=== PATIENT | male | born 1960 | race Caucasian/White ===

== ENCOUNTER 2020-06-30 09:44 | Outpatient (CLI) | payer OTHER, SELFPAY ==
--- NOTE | ~2020-06-30 | CT_ITS ---
EXAMINATION: CT abdomen pelvis w con DATE: 06/30/2020 10:41 INDICATION: Prostate cancer TECHNIQUE: Computed tomography (CT) of the abdomen and pelvis was performed with 100 cc Omnipaque 350 intravenous contrast. Automated exposure control and iterative reconstruction technique were employe d. Exam dose: 883.76 mGy-cm total exam DLP. COMPARISON: None. FINDINGS: The lung bases are clear of infiltrate or consolidation. Normal heart size. No pericardial or pleural effusion. There are numerous scattered hepatic cysts, measuring up to 12 mm dimension. No bile duct dilatation. The gallbladder appears normal. No pancreatic mass lesion or calcification or ductal dilatation. Nor mal splenic size. Normal morphology of the adrenal glands. Several small left renal cysts. No urinary tract calculus or hydroureteronephrosis. Normal caliber of the abdominal aorta. No intraperitoneal or retroperitoneal or pelvic mass lesion or adenopathy or ascites. Diffuse moderate bladder wall thickening. There is atherosclerotic calcification of the abdominal aorta and at the origins of the celiac and andrade perior mesenteric and renal arteries. Iliac and femoral artery calcifications. No abdominal aortic an eurysm. No intraperitoneal or retroperitoneal or pelvic mass lesion or adenopathy or ascites is evide nt. Normal appendix. There are diverticula of left and right colon; no CT evidence of diverticulitis. No bowel obstruction, bowel wall thickening, pneumatosis or intraperitoneal free air is detected. No suspicious osteolytic or osteoblastic lesions are noted. Probable bone island of left femoral neck . IMPRESSION: Hepatic cysts, several small left renal cysts Diffuse moderate bladder wall thickening Diverticulosis of the colon Reviewed, dictated and finalized at Location [facility]. Reviewed, dictated and finalized at location B. LATION MANAGER
--- NOTE | ~2020-06-30 | NM_ITS ---
NM bone scan whole body DATE: 06/30/2020 13:37 INDICATION: Prostate cancer TECHNIQUE: Routine anterior and posterior delayed whole body images of the skeleton after intravenous injection of 22.9 mCi 99m technetium HDP COMPARISON: June 30, 2020 CT abdomen pelvis FINDINGS: Focal areas of increased uptake at the acromioclavicular joints, sternal manubrial-body mook ction, first carpometacarpal joints and right knee joint are consistent with degenerative changes. No scintigraphic evidence of skeletal metastatic disease. Bilateral renal activity is noted. IMPRESSION: No evidence of skeletal metastatic disease Reviewed, dictated and finalized at [facility]. Reviewed, dictated and finalized at location B. OR PAYROLL SPECIALIST
[2020-06-30 10:44] LABS: Estimated Glomerular Filt Rate > 60
== END 2020-06-30 09:45 | disposition home or self-care (01) ==
LOC: ANHIMG 09:49
PROVIDERS: PCP Internal Medicine; Visit Provider Urology
DX: C61 Malignant neoplasm of prostate (principal); K76.89 Other specified diseases of liver; N28.1 Cyst of kidney, acquired; N32.9 Bladder disorder, unspecified; K57.90 Diverticulosis of intestine, part unspecified, without perforation or abscess without bleeding
CPT/HCPCS: 74177; 78306; A9561; Q9967

== ENCOUNTER 2020-08-05 09:25 | Outpatient (CLI) | payer OTHER, SELFPAY ==
--- NOTE | 2020-08-05 11:04 | ECG_ITS ---
Measurements Intervals Farrell Rate: 73 P: 42 TN: 162 QRS: 84 QRSD: 103 T: 60 QT: 376 QTc: 417 Interpretive Statements SINUS RHYTHM BORDERLINE R WAVE PROGRESSION, ANTERIOR LEADS BORDERLINE ECG Electronically Signed On 08-05-2020 11:33:06 CDT by Cal Nuñez D.O.
[2020-08-05 11:30] LABS: Basophils Absolute Auto 0.1 K/mm3 (0.0-0.1); Eosinophils Absolute Auto 0.2 K/mm3 (0-0.3); Eosinophils Percent Auto 2.5 % (0-4.4); Hematocrit 46.3 % (42.0-52.0); Hemoglobin 15.4 g/dL (14.0-18.0); Immature Granulocyte Absolute 0.02 K/mm3 (0.00-0.031); Immature Granulocyte Percent A 0.3 % (0-0.5); Lymphocytes Absolute Auto 2.15 K/mm3 (0.9-3.2); Lymphocytes Percent Auto 29.6 % (18.3-44.2); Mean Corpuscular HGB Conc 33.3 g/dl (32-36); Mean Corpuscular Hemoglobin 30.7 pg (26-34); Mean Corpuscular Volume 92.4 fl (80-100); Mean Platelet Volume 10.2 fl (7.4-10.4); Monocytes Absolute Auto 0.9 K/mm3 (0.1-0.6); Monocytes Percent Auto 12.8 % (2.6-8.5); Neutrophils Absolute Auto 3.9 K/mm3 (1.3-6.7); Neutrophils Percent Auto 53.8 % (45.5-73.1); Platelet Count Result 266 k/mm3 (150-375); Red Blood Count 5.01 M/mm3 (4.6-6.20); Red Cell Distribution Width 12.6 % (11.5-14.5); White Blood Count 7.3 K/mm3 (4.5-10.0)
[2020-08-05 11:40] LABS: INR 0.9; Partial Thromboplastin Time 26.9 SECONDS (22.3-36.8); Prothrombin Time 12.8 Seconds (11.1-14.7)
[2020-08-05 11:42] LABS: Alanine Aminotransferase 52 U/L (4-50); Albumin Level 4.6 g/dL (3.5-5.1); Alkaline Phosphatase 48 U/L (38-126); Anion Gap 8 mmol/L (8-16); Aspartate Amino Transferase 35 U/L (17-59); Bilirubin,Total 0.4 mg/dL (0.2-1.3); Blood Urea Nitrogen 15 mg/dL (9-20); Calcium 9.2 mg/dL (8.4-10.2); Carbon Dioxide 28 mmol/L (22-30); Chloride 104 mmol/L (98-107); Estimated Glomerular Filt Rate > 60; Glucose 113 mg/dL (75-110); Potassium 3.9 mmol/L (3.4-5.0); Sodium 140 mmol/L (137-145)
== END 2020-08-05 09:26 | disposition home or self-care (01) ==
PROVIDERS: PCP Internal Medicine; Visit Provider Urology
DX: Z01.818 Encounter for other preprocedural examination (principal); C61 Malignant neoplasm of prostate; I10 Essential (primary) hypertension; Z51.81 Encounter for therapeutic drug level monitoring; Z79.899 Other long term (current) drug therapy
CPT/HCPCS: 36415; 80053; 85025; 85610; 85730; 86850; 86900; 86901; 87086; 93005

== ENCOUNTER → 2020-08-12 05:07 | Outpatient (CLI) | payer OTHER, SELFPAY ==
[2020-08-12 19:22] LABS: SARS-CoV-2 RNA PCR Negative
== END ==
PROVIDERS: PCP Internal Medicine; Visit Provider Urology
DX: Z01.812 Encounter for preprocedural laboratory examination (principal); Z20.822 Contact with and (suspected) exposure to COVID-19
CPT/HCPCS: C9803; U0003; U0005

== ENCOUNTER 2020-08-15 00:57 | Day surgery (SDC) | payer OTHER, SELFPAY ==
[2020-08-05 11:02] VITALS: BP 139/74; PULSE 74; RESP 16; TEMP 36.8; O2SAT 97; BMI 31.7
[2020-08-15] VITALS (11 sets, daily range): BP systolic 119–151; BP diastolic 63–99; PULSE 58–74; RESP 12–18; TEMP 36.3–36.8; O2SAT 95–100; BMI 32.5
--- NOTE | 2020-08-15 10:51 | WPDHPUPDATE1 ---
History and Physical Update Update Date/Time: 08/15/20 10:51 History and Physical has been reviewed, including an updated exam of the patient. There are NO changes in the patient's condition. Risks, benefits, and alternatives have been discussed and questions answered. Patient agrees to proceed with procedure. Proceed with robotic assist nerve sparing prostatectomy with possible plnd
[2020-08-15] MEDS: LACTATED RINGERS 1,000 ML 30 ML IV CONT ×2 (10:55→16:47)
--- NOTE | 2020-08-15 11:40 | WPDANESEPPF ---
Anes - Initial Pre Proc Eval Procedure: Operation Date: 08/15/20 12:00 Proposed Procedures p Robotic Assisted Nerve Sparing Prostatectomy, Possible Bilateral Lymph Node Dissection - Jem Spivey MD Date/Time: 08/15/20 11:40 Surgeon: Jem Spivey MD Pre Op Diagnosis: Prostate CA Patient Data Age: 59 Gender: M Height: 5 ft 8.5 in Weight: 93.55 kg Last Vital Signs Temp 36.8 C 08/15/20 10:15 Pulse 73 08/15/20 10:15 Resp 18 08/15/20 10:15 BP 139/64 08/15/20 10:15 Pulse Ox 97 08/15/20 10:15 Allergies Allergy/AdvReac Type Severity Reaction Status Date / Time No Known Allergies Allergy Mild Verified 08/15/20 11:08 Home Medications Medication Instructions Recorded Confirmed Type cholecalciferol (vitamin D3) 25 mcg PO DAILY 08/05/20 08/15/20 History felodipine 10 mg PO QAM 08/05/20 08/15/20 History geriatric multivitamin-min 1 tablet PO DAILY 08/05/20 08/15/20 History [One-A-Day 50 Plus] lisinopril 10 mg PO QAM 08/05/20 08/15/20 History rosuvastatin 40 mg PO QAM 08/05/20 08/15/20 History Patient hx anesthesia problems: none Family hx anesthesia problems: none [facility] Past Medical History Medical History (Updated 08/15/20 @ 11:41 by Ludwig Miller MD) HTN (hypertension) Hyperlipidemia Prostate cancer Social History Social History Smoking packs per day: 1 Smoking cigarettes per day: 20.0 Years smoked: 10 Smoking pack-years: 10.00 Smoking status: Former smoker Tobacco type: cigarettes Smoking end date: 12/25/88 Alcohol intake: current Drinks per week: 8 Living arrangements: other Spiritual care concerns: No Anes - Eval Final PreProcedure Day of Procedure 08/15/20 11:40 Patient weight: obese Heart: regular rate and rhythm Lungs: clear to auscultation Airway: Mallampati scale class II Neurological: alert and oriented Last oral intake: >/= 8 hours ASA classification: III Emergent: no Anesthetic plan: proceed Anesthesia type and monitoring: general ETT and standard monitoring Informed Consent: The patient's anesthetic plan and its attendant risks and benefits were discussed with the patient/family/POA. Questions were solicited and answers provided to the satisfaction of the patient/family/POA.
[2020-08-15] MEDS: ceFAZolin 2 GM/D5W 50 ML 2 GM/50 ML BAG IVPB (12:42)
[2020-08-15] MEDS: BUPIVACAINE HCL 0.5% PF 30 ML VIAL INFILTRATE (13:10)
--- NOTE | 2020-08-15 16:26 | PM.PROC ---
Procedure Note - Detailed Date of procedure: 08/15/20 Pre-op diagnosis: Prostate CA Post-op diagnosis: same Procedure performed: Robotic assisted nerve-sparing prostatectomy with left pelvic lymph node dissection Description of procedure: Patient is taken the operative suite and correctly identified. Once anesthesia was obtained was placed in the dorsal lithotomy position and prepped draped usual sterile fashion. Eighteen Slovenian Mora was inserted with 15 cc in the balloon. Supraumbilical incision was then made carried down to the rectus fascia. Veress needle was inserted the end was inflates a flayed with 15 mmHg pressure. We then placed our camera port under direct vision. We appropriate working ports were then placed in normal positions. Patient was placed in steep Trendelenburg position the robot was docked. Posterior approach was then performed. Seminal vesicles were dissected out in their entirety. The vas were clipped. Plane between the prostate and rectum was developed. Some adhesions of the left colon was then taken down. This was done prior to initiation of procedure. Bladder was then taken down in a standard fashion. Space of Retzius was developed bilaterally. Puboprostatic were taken down. Dorsal venous complex was isolated using 0 Vicryl. The secured to the pubic bone. Anterior bladder neck was then opened. A bladder neck sparing procedure was performed. Posterior bladder neck was transected. The plane between the prostate and rectum was developed. Bilateral nerve-sparing was performed after taking down the pedicles with clips. Anterior bladder neck was then incised and opened after taking down the dorsal venous complex. Prostate was then placed in Endo-Catch bag. Left pelvic lymph node dissection was then performed with the boundaries being the external iliac vein obturator nerve Lizzy ligament and the bifurcation. This was also placed in the Endo-Catch bag. We then placed a Elvin stitch using 0 Vicryl. Bladder neck was then anastomosed to the urethral stump using V lock in a running fashion. There was good approximation mucosa. Sixteen Slovenian Mora was placed with inflated with 10 cc of sterile water. 150-200 cc of saline was placed in the bladder there was good irrigation. No evidence of extravasation. All lap count needle count sponge counts were correct. The robot was undocked. Specimen was brought out through the midline incision. Midline incision was closed using 0 Vicryl running fashion. Second Eugenio later stitches were then placed. Incisions were anesthetized 1% lidocaine. Patient is taken recovery room stable condition. Anesthesia: GETA Surgeon: Jem Spivey MD Estimated blood loss (mL): 100 Drains: Yes Packing: No Pathology: yes Complications: No immediate complications Condition: stable Disposition: PACU
--- NOTE | 2020-08-15 16:31 | SUR.OPER ---
EBL 100ML. URINE END OF CASE PINK AND DHILLON DRAINING. CATALINO DRAIN DRAINING.
[2020-08-15] MEDS: fentaNYL CITRATE INJ (*CRX) 100 MCG/2 ML VIAL 25 MCG IV PUSH ×4 (17:08→18:04)
[2020-08-15] MEDS: ONDANSETRON INJ 4 MG/2 ML VIAL IV PUSH (17:15)
[2020-08-15] MEDS: HYDROmorphone HCL INJ (*CRX) 1 MG/ML SYR 0.25 MG IV PUSH ×4 (17:25→17:47)
--- NOTE | 2020-08-15 18:16 | PC.NURSE ---
This patient, Viktor Mckenzie, was admitted to -. Patient/family oriented to hospital policies and general routines including ID bracelet, bed and alarms, visiting hours, pain management, procedures, bathroom and other care routines, personal items, smoking policy, room service/diet, and visiting hours. Information on how to activate the Rapid Response Team has been discussed. Patient/Family are encouraged to report perceived risks to care and to ask questions if they do not understand what they are told or what they should do.
[2020-08-15] MEDS: LACTATED RINGERS 1,000 ML 125 ML IV CONT (18:53)
[2020-08-15] MEDS: HYDROcodone/acetaminophen (*CRX) 5-325 MG TABLET 1 TAB PO (21:02)
[2020-08-15] MEDS: KETOROLAC 30 MG/ML VIAL (*BKC) IV PUSH (22:00)
[2020-08-16 00:12] VITALS: BP 122/67; PULSE 71; RESP 16; TEMP 36.3; O2SAT 99
[2020-08-16] MEDS: LACTATED RINGERS 1,000 ML 125 ML IV CONT ×2 (03:00→11:41)
[2020-08-16 05:50] LABS: Hematocrit 35.3 % (42.0-52.0); Hemoglobin 11.6 g/dL (14.0-18.0)
[2020-08-16] MEDS: HYDROcodone/acetaminophen (*CRX) 5-325 MG TABLET 1 TAB PO (06:00)
[2020-08-16 06:04] VITALS: BP 131/66; PULSE 68; RESP 16; TEMP 36.7; O2SAT 98
[2020-08-16 06:04] LABS: Anion Gap 5 mmol/L (8-16); Blood Urea Nitrogen 12 mg/dL (9-20); Calcium 8.5 mg/dL (8.4-10.2); Carbon Dioxide 28 mmol/L (22-30); Chloride 104 mmol/L (98-107); Estimated CRCL calculation 87 ml/min; Estimated Glomerular Filt Rate > 60; Glucose 112 mg/dL (75-110); Potassium 3.9 mmol/L (3.4-5.0); Sodium 137 mmol/L (137-145)
--- NOTE | 2020-08-16 07:41 | WPDANESPN ---
Anes - Prog Note Post-Op Date/Time: 08/16/20 07:41 Cardiovascular status: normal Respiratory status: normal Airway patency: baseline Mental status: baseline Post-Op hydration status: normal Vital Signs: Last Vital Signs Temp 36.7 C 08/16/20 06:04 Pulse 68 08/16/20 06:04 Resp 16 08/16/20 06:04 BP 131/66 08/16/20 06:04 Pulse Ox 98 08/16/20 06:04 Pain Score (VAS): 0/10. Patient resting in bed at time of assessment, appears comfortable. I/O: Intake & Output 08/15/20 08/15/20 08/16/20 15:59 23:59 07:59 Intake Total 50 400 1300 Output Total 200 410 Balance 50 200 890 Laboratory Tests 08/16/20 05:27 08/16/20 05:27 08/16/20 08/16/20 05:27 05:27 Hgb 11.6 L D Hct 35.3 L Sodium 137 Potassium 3.9 Chloride 104 Carbon Dioxide 28 Anion Gap 5 L BUN 12 Creatinine 0.90 Estim Creat Clear Calc 87 Estimated GFR > 60 Glucose 112 H Calcium 8.5 Post-procedural complaints: none Patient Feedback: Patient satisfied with anesthetic care.
[2020-08-16] MEDS: ROSUVASTATIN 10 MG TABLET 40 MG PO (09:08)
[2020-08-16] MEDS: FELODIPINE 5 MG TAB CR 10 MG PO (09:08)
[2020-08-16] MEDS: lisinopriL 10 MG TABLET PO (09:08)
[2020-08-16] MEDS: HYDROcodone/acetaminophen (*CRX) 5-325 MG TABLET 2 TAB PO (12:02)
--- NOTE | 2020-08-16 13:14 | WPDUROPN2 ---
Progress Note: A&P Assessment and Plan (1) Adenocarcinoma of prostate: Code(s): C61 - Malignant neoplasm of prostate Status: Acute Assessment and Plan: Doing well postoperative day 1. Will DC RANGEL today. Discharge home with Mora catheter. Follow-up in 1 week for catheter cystogram. Scripts sent to pharmacy of Bactrim 1 daily and Ultram as needed. Subjective Subjective Date/Time Seen: 08/16/20 13:14 Post Op day: 1 Principal diagnosis: Adenocarcinoma of prostate Interval history: doing well postop day 1. Ambulating. Tolerated diet. RANGEL with minimal drainage. Will discharge home today with Mora catheter. Review of Systems Review of Systems: All systems reviewed & are unremarkable except as noted in HPI and below Exam Const: General: cooperative and comfortable Eyes: General: appearance normal, both eyes and all related structures Neck: Neck: normal visual inspection Chest: Chest palpation & inspection: normal inspection of the chest Resp: Effort & Inspection: normal respiratory effort Cardio: Rate: regular rate Rhythm: regular rhythm GI: Inspection: normal to inspection GI Palp: No abdominal tenderness Objective Data Vital Signs Vital Signs: Vital Signs - 24 hr 08/15/20 16:46 08/15/20 17:01 08/15/20 17:16 Temperature 36.7 C Pulse Rate 74 67 62 Respiratory Rate 14 15 13 Blood Pressure 151/96 H 140/79 119/99 H Pulse Oximetry 95 100 100 08/15/20 17:31 08/15/20 17:46 08/15/20 18:01 Temperature Pulse Rate 66 58 L 64 Respiratory Rate 12 Blood Pressure 125/69 141/76 H 136/64 Pulse Oximetry 100 99 100 08/15/20 18:27 08/15/20 18:42 08/15/20 19:12 Temperature 36.3 C L 36.4 C 36.5 C Pulse Rate 64 66 64 Respiratory Rate 16 16 16 Blood Pressure 132/63 147/72 H 146/69 H Pulse Oximetry 100 99 99 08/15/20 20:12 08/16/20 00:12 08/16/20 06:04 Temperature 36.3 C L 36.3 C L 36.7 C Pulse Rate 65 71 68 Respiratory Rate 16 16 16 Blood Pressure 136/86 122/67 131/66 Pulse Oximetry 100 99 98 Intake/Output Intake/Output: Intake & Output 08/13/20 08/14/20 08/15/2006/21 23:59 23:59 23:59 23:59 Intake Total 450 2540 Output Total 200 2135 Balance 250 405 Meds/Results Medications: Active Medications Generic Name Dose Route Start Last Admin Trade Name Freq PRN Reason Stop Dose Admin Hydrocodone Bitart/Acetaminophen 1 tab 08/15/20 18:27 08/16/20 06:00 Hydrocodone/Acetaminophen (*Crx) 5-325 Mg Tablet PO 1 tab Q6H PRN Administration Pain Rated 1-3 Hydrocodone Bitart/Acetaminophen 2 tab 08/16/20 18:30 08/16/20 12:02 Hydrocodone/Acetaminophen (*Crx) 5-325 Mg Tablet PO 2 tab Q6H PRN Administration Pain Rated 4-6 Felodipine 10 mg 08/16/20 09:00 08/16/20 09:08 Felodipine 5 Mg Tab Cr PO 10 mg QAM DARREL Administration Hyoscyamine 0.125 mg 08/15/20 18:27 Hyoscyamine Sulfate 0.125 Mg Tablet SUBLINGUAL Q4H PRN Bladder Spasm Lactated Ringer's 1,000 mls @ 125 mls/hr 08/15/20 18:27 08/16/20 11:41 Lr - Lactated Ringers Iv IV CONT 125 mls/hr .Q8H DARREL Administration Ketorolac Tromethamine 30 mg 08/15/20 18:27 08/15/20 22:00 Ketorolac 30 Mg/Ml Vial (*Bkc) IV PUSH 08/16/20 18:28 30 mg Q6H PRN Administration Pain Rated 4-6 Levofloxacin 500 mg 08/16/20 09:00 08/16/20 09:49 Levofloxacin Tab 500 Mg Tablet PO 500 mg DAILY DARREL Administration Lisinopril 10 mg 08/16/20 09:00 08/16/20 09:08 Lisinopril 10 Mg Tablet PO 10 mg QAM DARREL Administration Morphine Sulfate 1 mg 08/15/20 18:27 Morphine Sulfate (*Crx) 2 Mg/Ml Inj IV PUSH Q2H PRN Pain Rated 7-10 Naloxone HCl 0.1 mg 08/15/20 18:27 Naloxone Hcl 0.4 Mg/Ml Vial IV PUSH Q2M PRN Opiate Reversal Ondansetron HCl 4 mg 08/15/20 18:27 Ondansetron Inj 4 Mg/2 Ml Vial IV PUSH Q6H PRN Nausea And Vomiting Rosuvastatin Calcium 40 mg 08/16/20 09:00 08/16/20 09:08 Rosuvastatin 10
[2020-08-16 14:00] VITALS: BP 126/64; PULSE 70; RESP 12; TEMP 36.2; O2SAT 98
== END 2020-08-16 15:25 | disposition home or self-care (01) ==
LOC: ANHSURGERY 09:52 → ANH3MED 18:30
PROVIDERS: PCP Internal Medicine; Visit Provider Urology
PROC: 0VT04ZZ Resection of Prostate, Percutaneous Endoscopic Approach (ICD-10-PCS; CPT 55867; principal; 2020-08-15 12:00)
DX: C61 Malignant neoplasm of prostate (principal); I10 Essential (primary) hypertension; E78.5 Hyperlipidemia, unspecified; Z87.891 Personal history of nicotine dependence; E66.9 Obesity, unspecified; Z68.32 Body mass index [BMI] 32.0-32.9, adult
CPT/HCPCS: 55866; 38571; S2900; 36415; 80048; 80053; 85014; 85018; 85025; 85610; 85730; 86850; 86900; 86901; 87086; 88305; 88307; 88309; 88342; 93005; A9270; C9803; J0690; J1100; J1170; J1885; J2250; J2405; J2704; J2710; J3010; J7030; J7120; U0003; U0005

== ENCOUNTER 2020-08-24 07:26 | Outpatient (CLI) | payer OTHER, SELFPAY ==
--- NOTE | ~2020-08-24 | XR_ITS ---
EXAMINATION: XR cystogram EXAM DATE: 08/24/2020 08:01 INDICATION: Prostatectomy for prostate cancer. TECHNIQUE: Fluoroscopic guidance used during cystogram performed through Mora catheter in place on p atient arrival. An Omnipaque 350/saline solution was used and allowed to infuse through the Mora cat heter under gravity. Heat And Vent Aircraft Mechanic image, fluoroscopic images and postevacuation image were obtained. Total fluoroscopic time of 0.1 minutes. A total of 15 images obtained for the exam. The DAP for this proce dure was 20.7 mGym2. FINDINGS: Heat And Vent Aircraft Mechanic image is unremarkable. Patient tolerated approximately 250 milliliters of distention. There is no contrast extravasation, bladder diverticula, evidence of vesicle ureteral reflux or oth er abnormality. IMPRESSION: Unremarkable XR cystogram exam. Reviewed, dictated and finalized at location A.
== END 2020-08-24 07:27 | disposition home or self-care (01) ==
PROVIDERS: PCP Internal Medicine; Visit Provider Urology
DX: C61 Malignant neoplasm of prostate (principal)
CPT/HCPCS: 51600; 74430; Q9967

== ENCOUNTER 2022-01-30 08:00 | Outpatient (NON) | payer OTHER, SELFPAY | END 2022-01-30 08:01 | disposition home or self-care (01) | LOC: ANHLAB 01-31 12:51 | PROVIDERS: PCP Internal Medicine; Visit Provider Nurse Practitioner | DX: D17.21 Benign lipomatous neoplasm of skin and subcutaneous tissue of right arm (principal) | CPT/HCPCS: 88304 ==

== ENCOUNTER 2022-05-18 18:46 | Emergency (ER) | payer OTHER, SELFPAY ==
[2022-05-18 19:16] VITALS: BP 131/102; PULSE 90; RESP 20; TEMP 37.5; O2SAT 96
--- NOTE | 2022-05-18 20:18 | ED.MALEGU ---
HPI - Male Genitourinary General Chief complaint: Urogenital-Male Stated complaint: urinary retention - hx of prostate surgery in 2020 Time Seen by Provider: 05/18/22 20:12 History of Present Illness HPI Narrative: 61-year-old male history of prostate CA who is 2 years status post prostatectomy presents to the emergency room for evaluation of urinary retention. Stated his last void was at 1 PM. Patient notes having multiple blood clots in his urine. Associated with mild suprapubic tenderness. Denies fever, abdominal pain or back pain. Related Data Home Medications Medication Instructions Recorded Confirmed cholecalciferol (vitamin D3) 25 25 mcg PO DAILY 08/05/20 08/15/20 mcg (1,000 unit) tablet felodipine 10 mg tablet,extended 10 mg PO QAM 08/05/20 08/15/20 release 24 hr geriatric multivitamin-min 1 tablet PO DAILY 08/05/20 08/15/20 lisinopril 10 mg tablet 10 mg PO QAM 08/05/20 08/15/20 rosuvastatin 40 mg tablet 40 mg PO QAM 08/05/20 08/15/20 Allergies Allergy/AdvReac Type Severity Reaction Status Date / Time No Known Allergies Allergy Mild Verified 05/18/22 18:47 Review of Systems Review of Systems: CONSTITUTIONAL: Denies fever, chills, or sweats. EYES: Denies visual changes, redness, or discharge. ENT: Denies rhinorrhea, congestion, sore throat, or otalgia. CARDIOVASCULAR: Denies chest pain, palpitations, or edema. RESPIRATORY: Denies cough or dyspnea. GASTROINTESTINAL: Denies abdominal pain, nausea, vomiting, or diarrhea. GENITOURINARY: Reports hematuria, urinary retention SKIN: Denies rash or itching. MUSCULOSKELETAL: Denies back pain, joint pain, or myalgia. NEUROLOGIC: Denies headache, numbness, dizziness, or weakness. PSYCHIATRIC: Denies anxiety or depression. [facility] Past Medical History Medical History HTN (hypertension) Hyperlipidemia Prostate cancer Surgical History Surgical History History of prostate surgery Social History Social History Smoking packs per day: 1 Smoking cigarettes per day: 20.0 Years smoked: 10 Smoking pack-years: 10.00 Smoking status: Former smoker Tobacco type: cigarettes Smoking end date: 12/25/88 Alcohol intake: former Drinks per week: 8 Substance use: never Spiritual care concerns: No Exam Narrative: GENERAL: Well-appearing, well-nourished, no physical limitations, and in no acute distress. HEAD: Normocephalic, atraumatic. EYES: Conjunctivae normal, PERRLA and EOMI. CHEST: Clear to auscultation. No respiratory distress. No wheezes rales or rhonchi. Area HEART: Regular rate and rhythm. No murmur heard. Normal peripheral pulses. ABDOMEN: Soft, suprapubic tenderness, nondistended, normal active bowel sounds. BACK: No CVA tenderness EXTREMITIES: Normal range of motion. No edema. No clubbing or cyanosis SKIN: Warm, dry, no rash. No noted wounds NEURO: No focal deficits. Alert and oriented x3. MAEW. CN's II-XI intact bilaterally, normal gait PSYCH: Cooperative. Normal mood and affect. Course Course Emergency Course: [address] Zaragoza who is on-call for urology. He recommends patient follow-up with urology next week. Also recommends patient go home with a leg bag.: Vital Signs Vital signs: Vital Signs Temperature 37.5 C 05/18/22 19:16 Pulse Rate 90 05/18/22 19:16 Respiratory Rate 20 05/18/22 19:16 Blood Pressure 131/102 H 05/18/22 19:16 Pulse Oximetry 96 05/18/22 19:16 Oxygen Delivery Room Air 05/18/22 19:16 Temperature 37.5 C 05/18/22 19:16 Pulse Rate 90 05/18/22 19:16 Respiratory Rate 20 05/18/22 19:16 Blood Pressure 131/102 H 05/18/22 19:16 Pulse Oximetry 96 05/18/22 19:16 Oxygen Delivery Room Air 05/18/22 19:16 MDM - Male Genitourinary Lab Data Labs: Lab Results 05/18/22 Range/Units 20:34 Uri
[2022-05-18 20:53] LABS: Add Urine Microscopic? YES; Appearance Urine Clear (Clear); Bilirubin Urine Negative (Negative); Blood Urine 2+ (Negative); Color Urine Yellow (Yellow); Glucose Urine UA Negative (Negative); Ketones Urine Negative (Negative); Leukocyte Esterase Ur Negative LEU/UL (Negative); Nitrate Urine Negative (Negative); Protein Urine Negative (Negative); Specific Grav Ur 1.025 (1.001-1.035); Urobilinogen Urine 0.2 mg/dL (<2.0)
[2022-05-18 21:11] LABS: Mucus Urine Rare /lpf; RBC Urine 21-50 /hpf (0-2); WBC Urine 0-3 /hpf
== END 2022-05-18 21:41 | disposition home or self-care (01) ==
PROVIDERS: Emergency Provider Nurse Practitioner Family; PCP Internal Medicine
DX: R31.9 Hematuria, unspecified (principal); I10 Essential (primary) hypertension; E78.5 Hyperlipidemia, unspecified; Z85.46 Personal history of malignant neoplasm of prostate; Z87.891 Personal history of nicotine dependence; Z90.79 Acquired absence of other genital organ(s)
CPT/HCPCS: 51702; 81001; 99283

== ENCOUNTER 2022-06-19 07:29 | Emergency (ER) | payer OTHER, SELFPAY ==
[2022-06-19 07:33] VITALS: BP 209/109; PULSE 90; RESP 18; TEMP 36.4; O2SAT 96
--- NOTE | 2022-06-19 07:46 | ED.MALEGU ---
HPI - Male Genitourinary General Chief complaint: Urogenital-Male Stated complaint: difficulty urinating Time Seen by Provider: 06/19/22 07:38 History of Present Illness HPI Narrative: Patient with a history of prostate cancer status postsurgery 2 years ago presenting with urinary retention, has been unable to urinate regularly since about 2 days ago, cannot make anything this morning so called his urologist and then came to the ER. A month ago had similar symptoms where he required an indwelling Mora for several days but resolved. No fevers or chills. Describing some distention and discomfort Related Data Home Medications Medication Instructions Recorded Confirmed cholecalciferol (vitamin D3) 25 25 mcg PO DAILY 08/05/20 08/15/20 mcg (1,000 unit) tablet felodipine 10 mg tablet,extended 10 mg PO QAM 08/05/20 08/15/20 release 24 hr geriatric multivitamin-min 1 tablet PO DAILY 08/05/20 08/15/20 lisinopril 10 mg tablet 10 mg PO QAM 08/05/20 08/15/20 rosuvastatin 40 mg tablet 40 mg PO QAM 08/05/20 08/15/20 Allergies Allergy/AdvReac Type Severity Reaction Status Date / Time No Known Allergies Allergy Mild Verified 05/18/22 18:47 Review of Systems Review of Systems: CONST: No fever. HEENT: No sore throat C/V: No chest pain RESP: No cough GI: Reports abdominal distention : Urinary retention. M/S: No joint pain. SKIN: No rash. NEURO: [No headache or focal numbness or weakness] PSYCH: [No depression] [facility] Past Medical History Medical History HTN (hypertension) Hyperlipidemia Prostate cancer Surgical History Surgical History History of prostate surgery Social History Social History Smoking packs per day: 1 Smoking cigarettes per day: 20.0 Years smoked: 10 Smoking pack-years: 10.00 Smoking status: Former smoker Tobacco type: cigarettes Smoking end date: 12/25/88 Alcohol intake: former Drinks per week: 8 Substance use: never Living arrangements: other Spiritual care concerns: No Exam Narrative: EXAMINATION OF ORGAN SYSTEMS/BODY AREAS: Constitutional: Vital signs per nursing GENERAL: Appears quite uncomfortable in bed HEAD: Normal with no signs of head trauma. EYES: EOMI, conjunctiva normal ENT: Hearing grossly intact LUNGS: Nonlabored breathing. HEART: [Regular rate and rhythm] ABD: [Soft], [mildly distended and tender to palpation suprapubic] EXT: Normal range of motion SKIN: [No rashes or lesions.] NEURO: [Alert and oriented x 3. No gross focal sensory or strength deficits.] PSYCH: Normal affect Course Vital Signs Vital signs: Vital Signs Temperature 97.5 F L 06/19/22 07:33 Pulse Rate 90 06/19/22 07:33 Respiratory Rate 18 06/19/22 07:33 Blood Pressure 209/109 H 06/19/22 07:33 Pulse Oximetry 96 06/19/22 07:33 Oxygen Delivery Room Air 06/19/22 07:33 Temperature 97.5 F L 06/19/22 07:33 Pulse Rate 90 06/19/22 07:33 Respiratory Rate 18 06/19/22 07:33 Blood Pressure 209/109 H 06/19/22 07:33 Pulse Oximetry 96 06/19/22 07:33 Oxygen Delivery Room Air 06/19/22 07:33 MDM - Male Genitourinary MDM Narrative Medical decision making narrative: 61-year-old male with history of prostate cancer status post surgery presents with acute urinary retention for last 2 days, vital signs initially notable for hypertension although I suspect this is likely secondary to pain and discomfort Mora is inserted with immediate resolution of symptoms, total of 1500 cc urine drained, I suspect urinary retention possibly from mass versus UTI. UA here is negative, I did discuss this with his urologist including the amount drained, and his urologist did recommend starting him on Flomax, and having him follow-up in the next few days for possible scope. Patient feeling much better, vital signs now khushboo
[2022-06-19 07:49] VITALS: BP 168/90
[2022-06-19 08:00] LABS: Appearance Urine Clear (Clear); Bilirubin Urine Negative (Negative); Blood Urine 1+ (Negative); Color Urine Yellow (Yellow); Glucose Urine UA Negative (Negative); Ketones Urine Negative (Negative); Leukocyte Esterase Ur Negative LEU/UL (Negative); Nitrate Urine Negative (Negative); Protein Urine 1+ mg/dL (Negative); Urobilinogen Urine 0.2 mg/dL (<2.0); pH Urine 6.5 (5.0-9.0)
[2022-06-19 08:10] LABS: Bacteria Urine Trace /hpf; Mucus Urine Rare /lpf; WBC Urine 0-3 /hpf
[2022-06-19 08:12] LABS: Add Urine Microscopic? YES
[2022-06-19 08:16] VITALS: BP 131/84
[2022-06-19 08:31] VITALS: BP 129/85
[2022-06-19 08:46] VITALS: BP 138/86
[2022-06-19] MEDS: TAMSULOSIN HCL 0.4 MG CAPSULE PO (09:21)
--- NOTE | 2022-06-19 09:33 | PC.NURSE ---
pt foey cath draining clear yellow urine. 1600 total emptied prior to D/c
[2022-06-19 09:38] VITALS: BP 128/81
== END 2022-06-19 09:40 | disposition home or self-care (01) ==
PROVIDERS: Emergency Provider Emergency Medicine; PCP Urology
DX: R33.9 Retention of urine, unspecified (principal); I10 Essential (primary) hypertension; E78.5 Hyperlipidemia, unspecified; Z87.891 Personal history of nicotine dependence; Z85.46 Personal history of malignant neoplasm of prostate
CPT/HCPCS: 51701; 81001; 99283; A9270

== ENCOUNTER 2023-01-16 23:05 | Emergency (ER) | payer OTHER, SELFPAY ==
[2023-01-16 23:37] VITALS: BP 195/106; PULSE 98; RESP 19; TEMP 36.3; O2SAT 98
--- NOTE | 2023-01-17 00:29 | ED.MALEGU ---
HPI - Male Genitourinary General Chief complaint: Urogenital-Male Stated complaint: Urinary Retention Time Seen by Provider: 01/17/23 00:01 Source: patient Mode of arrival: ambulatory Limitations: no limitations History of Present Illness HPI Narrative: This is a 62 year old male that presents to the ER for urinary retention. Reports he had not urinated for about 5 hours, had the sensation, but was unable to. Denies any other symptoms. He has had this issue 2 other times this year and had to have a catheter placed. Reports history of prostatectomy 2 years ago. His urologist is Dr. Spivey. Denies fever or hematuria. Related Data Home Medications Medication Instructions Recorded Confirmed cholecalciferol (vitamin D3) 25 25 mcg PO DAILY 08/05/20 08/15/20 mcg (1,000 unit) tablet felodipine 10 mg tablet,extended 10 mg PO QAM 08/05/20 08/15/20 release 24 hr geriatric multivitamin-min 1 tablet PO DAILY 08/05/20 08/15/20 lisinopril 10 mg tablet 10 mg PO QAM 08/05/20 08/15/20 rosuvastatin 40 mg tablet 40 mg PO QAM 08/05/20 08/15/20 Allergies Allergy/AdvReac Type Severity Reaction Status Date / Time No Known Allergies Allergy Mild Verified 05/18/22 18:47 Review of Systems Review of Systems: CONSTITUTIONAL: Denies fever GASTROINTESTINAL: Denies nausea, vomiting GENITOURINARY: Denies hematuria. All systems reviewed & are unremarkable except as noted in HPI and below PMFSH Past Medical History Medical History HTN (hypertension) Hyperlipidemia Prostate cancer Surgical History Surgical History History of prostate surgery Social History Social History Smoking packs per day: 1 Smoking cigarettes per day: 20.0 Years smoked: 10 Smoking pack-years: 10.00 Smoking status: Former smoker Tobacco type: cigarettes Smoking end date: 12/25/88 Alcohol intake: former Drinks per week: 8 Substance use: never Living arrangements: other Spiritual care concerns: No Exam Narrative: GENERAL: Well-appearing, well-nourished, and in no acute distress. HEAD: Normocephalic, atraumatic. EYES: EOMI. CHEST: Clear to auscultation. No respiratory distress. No wheezes rales or rhonchi HEART: Regular rate and rhythm. No murmur heard. Normal peripheral pulses. ABDOMEN: Soft, nontender, nondistended, normal active bowel sounds. EXTREMITIES: Normal range of motion. No edema. SKIN: Warm, dry, no rash. NEURO: No focal deficits. Alert and oriented x3. PSYCH: Normal mood and affect Course Course Emergency Course: Patient updated on workup and agrees with plan of care Vital Signs Vital signs: Vital Signs Temperature 97.4 F L 01/16/23 23:37 Pulse Rate 98 01/16/23 23:37 Respiratory Rate 19 01/16/23 23:37 Blood Pressure 195/106 H 01/16/23 23:37 Pulse Oximetry 98 01/16/23 23:37 Oxygen Delivery Room Air 01/16/23 23:37 Temperature 97.4 F L 01/16/23 23:37 Pulse Rate 98 01/16/23 23:37 Respiratory Rate 19 01/16/23 23:37 Blood Pressure 195/106 H 01/16/23 23:37 Pulse Oximetry 98 01/16/23 23:37 Oxygen Delivery Room Air 01/16/23 23:37 MDM - Male Genitourinary MDM Narrative Medical decision making narrative: Patient presents to the emergency department for urinary retention. reports history of prostatectomy 2 years prior. Reports he has had intermittent trouble with urinary retention since. His urologist is Dr. Spivey. He was noted to have a 1000 mL on bladder scan. Mora catheter placed. Urine is clear/yellow. blood pressure elevated initially, this down trended. Most recent blood pressure 145/87. UA with 21-50 red blood cells. No evidence of infection. Patient instructed to have follow-up with Urology. He was given warnings to return to the ER Differential Diagnosis Differential diagnosis: Likely urinary tra
[2023-01-17 00:43] LABS: Appearance Urine Clear (Clear); Bacteria Urine None Seen /hpf; Bilirubin Urine Negative (Negative); Blood Urine 2+ (Negative); Color Urine Yellow (Yellow); Glucose Urine UA Negative (Negative); Ketones Urine Negative (Negative); Leukocyte Esterase Ur Negative LEU/UL (Negative); Nitrate Urine Negative (Negative); Non Pathogenic Casts 0-2; Protein Urine 1+ mg/dL (Negative); RBC Urine 21-50 /hpf (0-2); Specific Grav Ur 1.012 (1.001-1.035); Squamous Epithelial Cell Urine None seen /hpf (Few); Urobilinogen Urine 0.2 mg/dL (<2.0); WBC Urine 0-5 /hpf; pH Urine 6.5 (5.0-9.0)
[2023-01-17 00:45] LABS: Add Urine Microscopic? YES
[2023-01-17 01:16] VITALS: BP 149/92; PULSE 99; RESP 14; O2SAT 98
== END 2023-01-17 01:50 | disposition home or self-care (01) ==
PROVIDERS: Emergency Provider Physician Assistant; PCP Internal Medicine
DX: R33.9 Retention of urine, unspecified (principal); I10 Essential (primary) hypertension; E78.5 Hyperlipidemia, unspecified; Z85.46 Personal history of malignant neoplasm of prostate; Z87.891 Personal history of nicotine dependence
CPT/HCPCS: 51702; 81001; 87086; 99283

== ENCOUNTER 2023-04-06 19:30 | Observation (INO) | payer OTHER, SELFPAY ==
[2023-04-06] VITALS (14 sets, daily range): BP systolic 127–212; BP diastolic 72–103; PULSE 68–115; RESP 14–20; TEMP 36.7; O2SAT 94–100
--- NOTE | 2023-04-06 20:28 | ECG_ITS ---
Measurements Intervals [place] Rate: 81 P: 5 ME: 155 QRS: -16 QRSD: 105 T: -2 QT: 367 QTc: 428 Interpretive Statements SINUS RHYTHM DELAYED PRECORDIAL R/S TRANSITION INFERIOR INFARCT, AGE INDETERMINATE ABNORMAL ECG COMPARED TO ECG 08/05/2020 11:36:40 MYOCARDIAL INFARCT NOW PRESENT Electronically Signed On 04-06-2023 22:22:42 [employer] TEACH[employer] by Cal Nuñez D.O.
--- NOTE | 2023-04-06 20:30 | ED.MALEGU ---
HPI - Male Genitourinary General Chief complaint: Urogenital-Male Stated complaint: hematuria, bladder spasms Time Seen by Provider: 04/06/23 20:09 History of Present Illness HPI Narrative: 62-year-old male with a history of prostatectomy in 2020 due to adenocarcinoma of the prostate reports for evaluation for hematuria and bladder spasms that started at 5:30 p.m. tonight. Patient follows with Dr. Spivey, urology. In February 2023, pt states he began having intermittent difficulty emptying his bladder and has been straight cathing himself as needed since. Patient states he underwent a cystoscopy [address] Crystal hua and was told he had scar tissue secondary from a prior radiation. He is planning to schedule the patient for a bladder biopsy in the near future. The patient states tonight he went to self cath himself around 5:30 p.m. and shortly after began developing on the left bleeding out of his urethra and dysuria. He states he has passed multiple clots. He also states he developed bladder spasms around this time suprapubic abdominal pain. He does have a history bladder spasms and is currently taking Gemtesa prescribed by Dr. Bates. He does state that he has bladder spasms are worse than his baseline. He denies history of kidney stones, fever, nausea or vomiting, chest pain or shortness of breath, syncope, lightheadedness or dizziness. His heart rate is found to be elevated upon evaluation. He does state that he took his lisinopril this morning. Denies decreased urine output. Related Data Home Medications Medication Instructions Recorded Confirmed cholecalciferol (vitamin D3) 25 25 mcg PO DAILY 08/05/20 08/15/20 mcg (1,000 unit) tablet felodipine 10 mg tablet,extended 10 mg PO QAM 08/05/20 08/15/20 release 24 hr geriatric multivitamin-min 1 tablet PO DAILY 08/05/20 08/15/20 lisinopril 10 mg tablet 10 mg PO QAM 08/05/20 08/15/20 rosuvastatin 40 mg tablet 40 mg PO QAM 08/05/20 08/15/20 Allergies Allergy/AdvReac Type Severity Reaction Status Date / Time No Known Allergies Allergy Mild Verified 05/18/22 18:47 Review of Systems Review of Systems: CONSTITUTIONAL: Denies fever, chills, or sweats. EYES: Denies visual changes, redness, or discharge. ENT: Denies rhinorrhea, congestion, sore throat, or otalgia. CARDIOVASCULAR: Denies chest pain, palpitations, or edema. RESPIRATORY: Denies cough or dyspnea. GASTROINTESTINAL: See HPI GENITOURINARY: See HPI SKIN: Denies rash or itching. MUSCULOSKELETAL: Denies back pain, joint pain, or myalgia. NEUROLOGIC: Denies numbness, or weakness. PSYCHIATRIC: Denies anxiety or depression. [facility] [place] Past Medical History Medical History HTN (hypertension) Hyperlipidemia Prostate cancer Surgical History Surgical History History of prostate surgery Social History Social History Smoking packs per day: 1 Smoking cigarettes per day: 20.0 Years smoked: 10 Smoking pack-years: 10.00 Smoking status: Former smoker Tobacco type: cigarettes Smoking end date: 12/25/88 Alcohol intake: former Drinks per week: 8 Substance use: never Living arrangements: other Spiritual care concerns: No Exam Narrative: GENERAL: Well-appearing, well-nourished, and in no acute distress. HEAD: Normocephalic, atraumatic. EYES: PERRLA and EOMI. ENT: Nares clear, no rhinorrhea or epistaxis. Mucous membranes moist. NECK: Supple. CHEST: Clear to auscultation. No respiratory distress. HEART: Regular rate and rhythm. No murmur heard. Normal peripheral pulses. ABDOMEN: Normoactive bowel sounds. Abdomen soft with mild tenderness in the suprapubic region. No guarding, rebound or rigidity. No CVA tenderness. No overlying skin changes. : Active bleeding from the urethra without evidence of urethra
[2023-04-06] MEDS: MORPHINE SULFATE (*CRX) 4 MG/ML INJ IV PUSH (20:45)
[2023-04-06 20:53] LABS: Basophils Absolute Auto 0.1 K/mm3 (0.0-0.1); Basophils Percent Auto 0.5 % (0.2-1.2); Eosinophils Absolute Auto 0.1 K/mm3 (0-0.3); Eosinophils Percent Auto 0.3 % (0-4.4); Hemoglobin 12.1 g/dL (14.0-18.0); Immature Granulocyte Absolute 0.06 K/mm3 (0.00-0.031); Immature Granulocyte Percent A 0.4 % (0-0.5); Lymphocytes Absolute Auto 0.95 K/mm3 (0.9-3.2); Lymphocytes Percent Auto 6.5 % (18.3-44.2); Mean Corpuscular HGB Conc 31.8 g/dl (32-36); Mean Corpuscular Hemoglobin 30.3 pg (26-34); Mean Platelet Volume 9.4 fl (7.4-10.4); Monocytes Absolute Auto 1.2 K/mm3 (0.1-0.6); Monocytes Percent Auto 8.3 % (2.6-8.5); Neutrophils Absolute Auto 12.2 K/mm3 (1.3-6.7); Platelet Count Result 412 k/mm3 (150-375); Red Cell Distribution Width 12.5 % (11.5-14.5); White Blood Count 14.6 K/mm3 (4.5-10.0)
[2023-04-06 21:05] LABS: Alanine Aminotransferase 32 U/L (6-50); Albumin Level 4.4 g/dL (3.5-5.1); Alkaline Phosphatase 85 U/L (38-126); Anion Gap 14 mmol/L (8-16); Aspartate Amino Transferase 25 U/L (17-59); Bilirubin,Total 0.5 mg/dL (0.2-1.3); Blood Urea Nitrogen 24 mg/dL (9-20); Calcium 8.9 mg/dL (8.4-10.2); Carbon Dioxide 20 mmol/L (22-30); Chloride 102 mmol/L (98-107); Estimated CRCL calculation 68 ml/min; Estimated Glomerular Filt Rate > 60; Glucose 184 mg/dL (65-110); Potassium 3.8 mmol/L (3.4-5.0); Sodium 136 mmol/L (137-145)
[2023-04-06] MEDS: SODIUM CHLORIDE 0.9% IV 1,000 ML 999 ML IV CONT (21:28)
[2023-04-06] MEDS: LIDOCAINE HCL 2% GEL UROJET 10 ML PKG (21:30)
[2023-04-06 23:55] LABS: Prothrombin Time 13.9 Seconds (11.1-14.7)
[2023-04-06 23:56] LABS: Partial Thromboplastin Time 34.8 SECONDS (22.3-36.8)
[2023-04-07] VITALS (26 sets, daily range): BP systolic 115–154; BP diastolic 69–89; PULSE 62–91; RESP 13–18; TEMP 36.8–37.1; O2SAT 95–99; BMI 32.0
[2023-04-07 00:06] LABS: Troponin I < 0.012 ng/mL (0.000-0.034)
[2023-04-07 02:35] LABS: Hematocrit 34.5 % (42.0-52.0); Hemoglobin 10.9 g/dL (14.0-18.0)
[2023-04-07 03:08] LABS: Appearance Urine Cloudy (Clear); Bilirubin Urine 1+ (Negative); Blood Urine 3+ (Negative); Glucose Urine UA Negative (Negative); Ketones Urine Negative (Negative); Nitrate Urine Positive (Negative); Protein Urine 3+ mg/dL (Negative); Specific Grav Ur 1.019 (1.001-1.035); Urobilinogen Urine 0.2 mg/dL (<2.0)
[2023-04-07 03:29] LABS: RBC Urine >100 /hpf (0-2); WBC Urine >100 /hpf (0-3)
[2023-04-07 03:30] LABS: Squamous Epithelial Cell Urine Moderate /hpf (Few); Transitional Epi Cells Urine Few /hpf
[2023-04-07 03:31] LABS: Leukocyte Esterase Ur 3+ LEU/UL (Negative)
[2023-04-07 03:32] LABS: Bacteria Urine 3+ /hpf; Color Urine Dark Red (Yellow)
[2023-04-07 03:33] LABS: Add Urine Microscopic? YES
[2023-04-07] MEDS: MORPHINE SULFATE (*CRX) 4 MG/ML INJ IV PUSH ×7 (04:02→20:34)
[2023-04-07 04:11] LABS: Hematocrit 33.1 % (42.0-52.0); Hemoglobin 10.5 g/dL (14.0-18.0)
[2023-04-07 04:24] LABS: Lactic Acid Reflex 0.7 mmol/L (0.7-2.0)
--- NOTE | 2023-04-07 05:45 | ADMGEN ---
This patient, Viktor Mckenzie, was admitted to Medical Room 349-01. Patient/family oriented to hospital policies and general routines including ID bracelet, bed and alarms, visiting hours, pain management, procedures, bathroom and other care routines, personal items, smoking policy, room service/diet, and visiting hours. Information on how to activate the Rapid Response Team has been discussed. Patient/Family are encouraged to report perceived risks to care and to ask questions if they do not understand what they are told or what they should do.
--- NOTE | 2023-04-07 05:45 | PC.NURSE ---
18fr catheter removed and replaced with a 22fr catheter due to pt passing large clots.
[2023-04-07] MEDS: SODIUM CHLORIDE 0.9% IV 1,000 ML 100 ML IV CONT ×3 (05:56→20:34)
[2023-04-07] MEDS: FELODIPINE 5 MG TAB CR 10 MG PO (08:26)
[2023-04-07] MEDS: MULTIVITAMINS /C LUTEIN (CENTRUM SILVER) TABLET *BKC 1 TAB PO (08:26)
[2023-04-07] MEDS: lisinopriL 10 MG TABLET PO (08:26)
[2023-04-07] MEDS: ROSUVASTATIN 10 MG TABLET 40 MG PO (08:26)
[2023-04-07] MEDS: CHOLECALCIFEROL 1,000 UNITS TABLET 1000 UNITS PO (08:26)
[2023-04-07 10:03] LABS: Basophils Absolute Auto 0.1 K/mm3 (0.0-0.1); Basophils Percent Auto 0.5 % (0.2-1.2); Eosinophils Absolute Auto 0.1 K/mm3 (0-0.3); Eosinophils Percent Auto 0.5 % (0-4.4); Hematocrit 34.6 % (42.0-52.0); Hemoglobin 10.8 g/dL (14.0-18.0); Immature Granulocyte Absolute 0.04 K/mm3 (0.00-0.031); Immature Granulocyte Percent A 0.4 % (0-0.5); Lymphocytes Absolute Auto 1.23 K/mm3 (0.9-3.2); Lymphocytes Percent Auto 12.3 % (18.3-44.2); Mean Corpuscular HGB Conc 31.2 g/dl (32-36); Mean Corpuscular Hemoglobin 30.1 pg (26-34); Mean Corpuscular Volume 96.4 fl (80-100); Mean Platelet Volume 9.3 fl (7.4-10.4); Monocytes Absolute Auto 1.1 K/mm3 (0.1-0.6); Monocytes Percent Auto 11.4 % (2.6-8.5); Neutrophils Absolute Auto 7.5 K/mm3 (1.3-6.7); Neutrophils Percent Auto 74.9 % (45.5-73.1); Platelet Count Result 348 k/mm3 (150-375); Red Blood Count 3.59 M/mm3 (4.6-6.20); Red Cell Distribution Width 12.6 % (11.5-14.5)
--- NOTE | 2023-04-07 10:14 | PM.IMHP ---
H&P: HPI History of Present Illness Date/Time: 04/07/23 10:14 Chief Complaint: Suprapubic abdomen pain and bloody urine Narrative: 62-year-old male with history of hypertension, hyperlipidemia, prostatectomy in 2020 secondary to adenocarcinoma the prostate present ED with a chief complaint of suprapubic abdominal pain and hematuria since 5:30 p.m. this evening.? Patient has a history of breast cancer, status post radiation therapy. Patient under venous cystoscope above week ago, and patient was found to have start issue due to radiation therapy. Patient had suprapubic pain, patient septic catheterization about 3:00 p.m. yesterday. Since then patient has been having bleeding from urethra and dysuria. Patient denies headache, chest pain, shortness of breath, nausea vomiting diarrhea. Patient came to ED for evaluation. Upon arrival, patient was found have leukocytosis of 14,600, anemia hemoglobin 12.1, that is close to baseline but trending down to 10.8 today. Elevated BUN creatinine ratio 24 hour 1 POA, attempt acidosis bicarbonate 20,. Urinalysis showed cloudy urine, DrVandana Burrows in color, abnormal white blood cell, and red blood cell above 100, bacteriuria 3+. Upon arrival, blood pressure stable, afebrile. ER physician discussed case with urology application manager Dr. Mccracken who agrees to consult. We admit patient for further evaluation and management PMFSH Past Medical History Medical History HTN (hypertension) Hyperlipidemia Prostate cancer Surgical History Surgical History History of prostate surgery Family History Family History Father Pancreas cancer Mother Dementia Social History Social History Smoking packs per day: 1 Smoking cigarettes per day: 20.0 Years smoked: 10 Smoking pack-years: 10.00 Smoking status: Former smoker Tobacco type: cigarettes Smoking end date: 12/25/88 Alcohol intake: never Drinks per week: 8 Substance use: never Lack of Transportation: No Lack of Food: Never True Current Housing: I Have Housing Concerned About Future Housing: No Difficulty Paying Gas/Electric Bills: No Difficulty Paying for Meds: No Currently Unemployed: No Education: High School Diploma/GED Difficulty w/ Childcare or Family Care: No Living arrangements: other Spiritual care concerns: No Meds Home Medications and Allergies Home Medications Medication Instructions Recorded Confirmed Type cholecalciferol (vitamin D3) 25 25 mcg PO DAILY 08/05/20 04/07/23 History mcg (1,000 unit) tablet felodipine 10 mg tablet,extended 10 mg PO QAM 08/05/20 04/07/23 History release 24 hr geriatric multivitamin-min 1 tablet PO DAILY 08/05/20 04/07/23 History lisinopril 10 mg tablet 10 mg PO QAM 08/05/20 04/07/23 History rosuvastatin 40 mg tablet 40 mg PO QAM 08/05/20 04/07/23 History Allergies Allergy/AdvReac Type Severity Reaction Status Date / Time No Known Allergies Allergy Mild Verified 04/07/23 05:49 Vital Signs Vital Signs - 24 hr 04/06/23 19:44 04/06/23 21:25 04/06/23 22:54 Temperature 98.1 F Pulse Rate 115 H 81 74 Respiratory Rate 20 17 15 Blood Pressure 212/103 H 145/81 H 145/72 H Pulse Oximetry 97 97 100 Oxygen Delivery Room Air 04/06/23 21:25 04/06/23 21:31 04/06/23 21:46 Temperature Pulse Rate 80 82 77 Respiratory Rate 15 15 17 Blood Pressure 145/81 H 153/88 H 152/85 H Pulse Oximetry 97 97 97 Oxygen Delivery 04/06/23 22:02 04/06/23 22:45 04/06/23 22:47 Temperature Pulse Rate 79 76 75 Respiratory Rate 18 15 18 Blood Pressure 143/81 H 145/72 H Pulse Oximetry 96 98 97 Oxygen Delivery 04/06/23 23:01 04/06/23 23:02 04/06/23 23:15 Temperature Pulse Rate 75 74 77 Respiratory Rate 16 18 17 Blood Pre
[2023-04-07 10:15] LABS: Anion Gap 6 mmol/L (8-16); Blood Urea Nitrogen 11 mg/dL (9-20); Calcium 8.3 mg/dL (8.4-10.2); Carbon Dioxide 27 mmol/L (22-30); Chloride 106 mmol/L (98-107); Estimated CRCL calculation 120 ml/min; Estimated Glomerular Filt Rate > 60; Glucose 115 mg/dL (65-110); Potassium 3.7 mmol/L (3.4-5.0); Sodium 139 mmol/L (137-145)
--- NOTE | 2023-04-07 11:11 | WPDURCON ---
Assessment and Plan Assessment and plan (1) Gross hematuria: Code(s): R31.0 - Gross hematuria Status: Acute Assessment and Plan: Likely from UTI due to urethral instrumentation (CIC). -Agree with IV antibiotics, unfortunately, no culture was sent thus will need to choose an empiric abx for discharge. -Titrate CBI to light pink/clear urine. Irrigate with piston syringe if needed. -Resume gemtesa for baldder spasm -Plan to DC tomorrow if clinical status continues to improve with catheter, the patient is planning a bladder biopsy as outpatient with Dr. Spivey. Urology Consult Note HPI Date Seen: 04/07/23 Requesting Physician: Dorina Osuna DO Primary Care Provider: Thomas UmanzorMD Consult Narrative Narrative: Viktor Mckenzie is a 62 year old male with history of urinary retention who performs CIC throughout the day and has had hematuria with bladder spasms. Dr. Spivey recently performed an office cystoscopy which demonstrated possible bladder abnormality and recommended a formal cystoscopy in the operating room and bladder biopsy. The patient reports his irritative voiding symptoms progressively worsened and he had severe bladder spasms with hematuria yesterday and presented to the ER. His UA was positive for LE and nitrites, unfortunately a culture was not sent before starting IV antibiotics. CBI has cleared on moderated drip. Review of Systems Review of Systems: 12 pt review or systems performed and negative except for HPI. [facility] Past Medical History Medical History HTN (hypertension) Hyperlipidemia Prostate cancer Surgical History Surgical History History of prostate surgery Family History Family History Father Pancreas cancer Mother Dementia Social History Social History Smoking packs per day: 1 Smoking cigarettes per day: 20.0 Years smoked: 10 Smoking pack-years: 10.00 Smoking status: Former smoker Tobacco type: cigarettes Smoking end date: 12/25/88 Alcohol intake: never Drinks per week: 8 Substance use: never Lack of Transportation: No Lack of Food: Never True Current Housing: I Have Housing Concerned About Future Housing: No Difficulty Paying Gas/Electric Bills: No Difficulty Paying for Meds: No Currently Unemployed: No Education: High School Diploma/GED Difficulty w/ Childcare or Family Care: No Living arrangements: other Spiritual care concerns: No Meds Home Medications and Allergies Home Medications Medication Instructions Recorded Confirmed Type cholecalciferol (vitamin D3) 25 25 mcg PO DAILY 08/05/20 04/07/23 History mcg (1,000 unit) tablet felodipine 10 mg tablet,extended 10 mg PO QAM 08/05/20 04/07/23 History release 24 hr geriatric multivitamin-min 1 tablet PO DAILY 08/05/20 04/07/23 History lisinopril 10 mg tablet 10 mg PO QAM 08/05/20 04/07/23 History rosuvastatin 40 mg tablet 40 mg PO QAM 08/05/20 04/07/23 History Allergies Allergy/AdvReac Type Severity Reaction Status Date / Time No Known Allergies Allergy Mild Verified 04/07/23 05:49 Vital Signs Vital Signs - 24 hr 04/06/23 19:44 04/06/23 21:25 04/06/23 22:54 Temperature 98.1 F Pulse Rate 115 H 81 74 Respiratory Rate 20 17 15 Blood Pressure 212/103 H 145/81 H 145/72 H Pulse Oximetry 97 97 100 Oxygen Delivery Room Air 04/06/23 21:25 04/06/23 21:31 04/06/23 21:46 Temperature Pulse Rate 80 82 77 Respiratory Rate 15 15 17 Blood Pressure 145/81 H 153/88 H 152/85 H Pulse Oximetry 97 97 97 Oxygen Delivery 04/06/23 22:02 04/06/23 22:45 04/06/23 22:47 Temperature Pulse Rate 79 76 75 Respiratory Rate 18 15 18 Blood Pressure 143/81 H 145/72 H Pulse Oximetry 96 98 97 Oxygen
--- NOTE | 2023-04-07 14:15 | PC.NURSE ---
Dr. Honeycutt would like blood transfusion orders cancelled. Called blood bank to cancel blood transfusion, as I cannot take order out of computer on my end
[2023-04-07 16:31] LABS: Hematocrit 38.8 % (42.0-52.0); Hemoglobin 12.2 g/dL (14.0-18.0)
[2023-04-07 22:24] LABS: Hematocrit 34.4 % (42.0-52.0); Hemoglobin 10.6 g/dL (14.0-18.0)
[2023-04-08] VITALS (9 sets, daily range): BP systolic 126–140; BP diastolic 68–76; PULSE 58–80; RESP 18; TEMP 36.6–37.3; O2SAT 97–99
[2023-04-08] MEDS: oxyBUTYnin CHLORIDE 5 MG TABLET PO ×4 (00:15→17:35)
[2023-04-08] MEDS: ACETAMINOPHEN 325 MG TABLET 650 MG PO ×5 (00:15→23:42)
--- NOTE | 2023-04-08 07:48 | WPDUROPN2 ---
Progress Note: A&P Assessment and Plan (1) Gross hematuria: Code(s): R31.0 - Gross hematuria Status: Acute Assessment and Plan: wean CBI to clear. Once clear can d/c nguyen Subjective Subjective Date/Time Seen: 04/08/23 07:48 Review of Systems Review of Systems: urine tea colored with CBI for some time. Nursing states some clots overnight Exam Narrative: Urine tea colored in catheter Objective Data Vital Signs Vital Signs: Vital Signs - 24 hr 04/07/23 08:25 04/07/23 08:00 04/07/23 08:30 Temperature Pulse Rate 77 71 Respiratory Rate 16 Blood Pressure 154/82 H Pulse Oximetry 99 Oxygen Delivery Room Air 04/07/23 12:00 04/07/23 14:00 04/07/23 16:00 Temperature 98.2 F Pulse Rate 80 75 91 Respiratory Rate 16 Blood Pressure 126/71 Pulse Oximetry 97 Oxygen Delivery 04/07/23 20:38 04/07/23 20:00 04/07/23 20:00 Temperature 98.8 F Pulse Rate 75 71 Respiratory Rate 15 Blood Pressure 119/69 Pulse Oximetry 97 Oxygen Delivery Room Air 04/08/23 00:00 04/08/23 04:00 04/08/23 06:00 Temperature 98.2 F Pulse Rate 68 58 L 71 Respiratory Rate 18 Blood Pressure 126/68 Pulse Oximetry 99 Oxygen Delivery Intake/Output Intake/Output: Intake & Output 04/05/23 04/06/23 04/07/23 04/08/23 23:59 23:59 23:59 23:59 Intake Total 1000 5640 200 Output Total 3000 4850 Balance -2000 790 200 Meds/Results Medications: Active Medications Generic Name Dose Route Start Last Admin Trade Name Freq PRN Reason Stop Dose Admin Acetaminophen 650 mg 04/07/23 23:20 04/08/23 05:20 Acetaminophen 325 Mg Tablet PO 650 mg Q6H PRN Administration Mild Pain (1-3) or Fever Felodipine 10 mg 04/07/23 09:00 04/07/23 08:26 Felodipine 5 Mg Tab Cr PO 10 mg QAM DARREL Administration Ceftriaxone Sodium 1 gm in 50 mls @ 100 mls/hr 04/08/23 04:00 04/08/23 05:20 Rocephin 1 Gm/Ns 50 Ml IVPB 100 mls/hr Q24H DARREL Administration Sodium Chloride 1,000 mls @ 100 mls/hr 04/07/23 03:40 04/07/23 20:34 Normal Saline Iv IV CONT 100 mls/hr .Q10H DARREL Administration Lisinopril 10 mg 04/07/23 09:00 04/07/23 08:26 Lisinopril 10 Mg Tablet PO 10 mg QAM DARREL Administration Multivitamins/Minerals 1 tab 04/07/23 09:00 04/07/23 08:26 Multivitamins /C Lutein (Centrum Silver) Tablet *Bkc PO 1 tab QAM DARREL Administration Oxybutynin Chloride 5 mg 04/07/23 23:20 04/08/23 00:15 Oxybutynin Chloride 5 Mg Tablet PO 5 mg TID DARREL Administration Rosuvastatin Calcium 40 mg 04/07/23 09:00 04/07/23 08:26 Rosuvastatin 10 Mg Tablet PO 40 mg QAM DARREL Administration Vitamin D 1,000 units 04/07/23 09:00 04/07/23 08:26 Cholecalciferol 1,000 Units Tablet PO 1,000 units DAILY DARREL Administration Labs Labs: Laboratory Results - last 24 hr 04/07/23 04/07/23 04/07/23 09:58 16:27 22:19 WBC 10.0 RBC 3.59 L Hgb 10.8 L 12.2 L 10.6 L Hct 34.6 L 38.8 L 34.4 L MCV 96.4 MCH 30.1 MCHC 31.2 L RDW 12.6 Plt Count 348 MPV 9.3 Immature Gran % (Auto) 0.4 Neut % (Auto) 74.9 H Lymph % (Auto) 12.3 L [place] % (Auto) 11.4 H Eos % (Auto) 0.5 Baso % (Auto) 0.5 Lymph # (Auto) 1.23 [place] # (Auto) 1.1 H Eos # (Auto) 0.1 Baso # (Auto) 0.1 Abs Immat Gran (auto) 0.04 H Absolute Neuts (auto) 7.5 H Absolute Nucleated RBC 0.0 Nucleated RBC % 0.0 Sodium 139 Potassium 3.7 Chloride 106 Carbon Dioxide 27 Anion Gap 6 L BUN 11 D Creatinine 0.60 L Estim Creat Clear Calc 120 Estimated GFR > 60 Glucose 115 H Calcium 8.3 L
[2023-04-08] MEDS: CHOLECALCIFEROL 1,000 UNITS TABLET 1000 UNITS PO (09:10)
[2023-04-08] MEDS: MULTIVITAMINS /C LUTEIN (CENTRUM SILVER) TABLET *BKC 1 TAB PO (09:10)
[2023-04-08] MEDS: lisinopriL 10 MG TABLET PO (09:10)
[2023-04-08] MEDS: ROSUVASTATIN 10 MG TABLET 40 MG PO (09:10)
[2023-04-08] MEDS: FELODIPINE 5 MG TAB CR 10 MG PO (09:10)
--- NOTE | 2023-04-08 10:23 | PM.IMPN ---
Progress Note: A&P Assessment and Plan (1) Gross hematuria: Code(s): R31.0 - Gross hematuria Status: Acute (2) UTI (urinary tract infection): Qualifiers: Hematuria presence: with hematuria Urinary tract infection type: acute cystitis Qualified Code(s): N30.01 - Acute cystitis with hematuria Code(s): N39.0 - Urinary tract infection, site not specified Status: Acute (3) Adenocarcinoma of prostate: Code(s): C61 - Malignant neoplasm of prostate Status: Acute (4) Uncontrolled hypertension: Code(s): I10 - Essential (primary) hypertension Status: Acute (5) Dehydration: Code(s): E86.0 - Dehydration Status: Acute Plan Gross hematuria Resulting from self catheterization, possible due to trauma superimposed with persist cancer Consult urologist, follow recommendation urine tea colored,?has clot overnight Continue bladder irrigation ? Complicated UTI Urinalysis showed large amount red blood cell and white blood cell cell, possible due to trauma, urinalysis also shows bacteriuria Patient has leukocytosis Start ceftriaxone 1 g IV daily Follow-up urine culture pending Acute on chronic blood-loss anemia Patient has chronic anemia, hemoglobin is trending down since admission Possible due to hematuria Follow-up CBC hemoglobin Transfuse as needed Hemoglobin stable Uncontrolled hypertension Continue felodipine 10 mg daily p.o., lisinopril 10 mg daily p.o. Dehydration Elevated BUN creatinine ratio of 20 Received fluid resuscitation continue normal saline IV 100 mL/hour Hyperlipidemia: Continue Crestor 40 mg p.o. Subjective Date/time seen: 04/08/23 10:23 Interval history: urine tea colored with CBI for some time. nursing states some clots overnight. Clot was drained out from catheter with a syringe. Patient denies chest pain, shortness breast, abdomen pain, nausea vomiting, headache ? Exam Narrative: GENERAL: Pleasant, in no acute distress. Well-nourished. - EYES: EOMI. Anicteric. - HENT: Moist mucous membranes. - LUNGS: Clear to auscultation bilaterally, no wheezing, rhonchi, or rales. - CARDIOVASCULAR: Regular rate and rhythm. No murmur. No JVD. - ABDOMEN: Soft, non-tender and non-distended. No palpable masses. Mora catheter in-situ, blood clot drained out with bladder irrigation fluid - EXTREMITIES: No edema. Peripheral pulses 2+. Non-tender. - NEUROLOGIC: No focal neurological deficits. CN II-XII grossly intact. - PSYCHIATRIC: Awake, Alert and oriented x 3. Appropriate mood and affect. - SKIN: No rashes or lesions. Warm. - LYMPH: No cervical lymphadenopathy. Objective Data Vital Signs Vital Signs: Vital Signs - 24 hr 04/07/23 12:00 04/07/23 14:00 04/07/23 16:00 Temperature 98.2 F Pulse Rate 80 75 91 Respiratory Rate 16 Blood Pressure 126/71 Pulse Oximetry 97 Oxygen Delivery 04/07/23 20:38 04/07/23 20:00 04/07/23 20:00 Temperature 98.8 F Pulse Rate 75 71 Respiratory Rate 15 Blood Pressure 119/69 Pulse Oximetry 97 Oxygen Delivery Room Air 04/08/23 00:00 04/08/23 04:00 04/08/23 06:00 Temperature 98.2 F Pulse Rate 68 58 L 71 Respiratory Rate 18 Blood Pressure 126/68 Pulse Oximetry 99 Oxygen Delivery 04/08/23 08:00 Temperature Pulse Rate Respiratory Rate Blood Pressure Pulse Oximetry Oxygen Delivery Room Air Intake/Output Intake/Output: Intake & Output 04/05/23 04/06/23 04/07/23 04/08/23 23:59 23:59 23:59 23:59 Intake Total 1000 5640 400 Output Total 3000 4850 Balance -2000 790 400 Meds/Results Medications: Active Medications Generic Name Dose Route Start Last Admin Trade Name Freq PRN Reason Stop Dose Admin Acetaminophen 650 mg 04/07/23 23:20 04/08/23 05:20 Acetaminophen 325 Mg Tablet PO 650 mg Q6H PRN Administration Mild Pain (1-3) or Fever Felodipine 10 mg 04/07/23 09:00 04/08/23 09:10
[2023-04-08] MEDS: SENNA/DOCUSATE SODIUM TABLET 1 TAB PO (17:35)
[2023-04-08 17:39] LABS: Basophils Absolute Auto 0.1 K/mm3 (0.0-0.1); Basophils Percent Auto 0.7 % (0.2-1.2); Eosinophils Absolute Auto 0.2 K/mm3 (0-0.3); Eosinophils Percent Auto 1.9 % (0-4.4); Hematocrit 34.4 % (42.0-52.0); Hemoglobin 10.9 g/dL (14.0-18.0); Immature Granulocyte Absolute 0.03 K/mm3 (0.00-0.031); Immature Granulocyte Percent A 0.3 % (0-0.5); Lymphocytes Absolute Auto 1.41 K/mm3 (0.9-3.2); Lymphocytes Percent Auto 15.9 % (18.3-44.2); Mean Corpuscular HGB Conc 31.7 g/dl (32-36); Mean Corpuscular Hemoglobin 30.2 pg (26-34); Mean Corpuscular Volume 95.3 fl (80-100); Mean Platelet Volume 9.2 fl (7.4-10.4); Monocytes Absolute Auto 0.9 K/mm3 (0.1-0.6); Monocytes Percent Auto 10.5 % (2.6-8.5); Neutrophils Absolute Auto 6.3 K/mm3 (1.3-6.7); Neutrophils Percent Auto 70.7 % (45.5-73.1); Platelet Count Result 390 k/mm3 (150-375); Red Blood Count 3.61 M/mm3 (4.6-6.20); Red Cell Distribution Width 12.5 % (11.5-14.5); White Blood Count 8.9 K/mm3 (4.5-10.0)
[2023-04-08 18:01] LABS: Anion Gap 10 mmol/L (8-16); Blood Urea Nitrogen 10 mg/dL (9-20); Calcium 8.6 mg/dL (8.4-10.2); Carbon Dioxide 24 mmol/L (22-30); Chloride 103 mmol/L (98-107); Estimated CRCL calculation 120 ml/min; Estimated Glomerular Filt Rate > 60; Glucose 192 mg/dL (65-110); Potassium 3.5 mmol/L (3.4-5.0); Sodium 137 mmol/L (137-145)
[2023-04-09] VITALS: PULSE 65
[2023-04-09 04:00] VITALS: PULSE 64
[2023-04-09 06:00] VITALS: BP 169/80; PULSE 74; RESP 20; TEMP 36.3; O2SAT 98
[2023-04-09 08:00] VITALS: PULSE 73
[2023-04-09 08:24] LABS: Hematocrit 35.1 % (42.0-52.0); Hemoglobin 11.3 g/dL (14.0-18.0); Mean Corpuscular HGB Conc 32.2 g/dl (32-36); Mean Corpuscular Hemoglobin 30.6 pg (26-34); Mean Corpuscular Volume 95.1 fl (80-100); Platelet Count Result 422 k/mm3 (150-375); Red Blood Count 3.69 M/mm3 (4.6-6.20); Red Cell Distribution Width 12.5 % (11.5-14.5); White Blood Count 8.9 K/mm3 (4.5-10.0)
[2023-04-09 08:34] LABS: Anion Gap 8 mmol/L (8-16); Blood Urea Nitrogen 10 mg/dL (9-20); Calcium 8.7 mg/dL (8.4-10.2); Carbon Dioxide 28 mmol/L (22-30); Chloride 102 mmol/L (98-107); Estimated CRCL calculation 120 ml/min; Estimated Glomerular Filt Rate > 60; Glucose 184 mg/dL (65-110); Potassium 3.6 mmol/L (3.4-5.0); Sodium 138 mmol/L (137-145)
[2023-04-09] MEDS: ROSUVASTATIN 10 MG TABLET 40 MG PO (09:46)
[2023-04-09] MEDS: oxyBUTYnin CHLORIDE 5 MG TABLET PO ×2 (09:46→12:43)
[2023-04-09] MEDS: lisinopriL 10 MG TABLET PO (09:46)
[2023-04-09] MEDS: CHOLECALCIFEROL 1,000 UNITS TABLET 1000 UNITS PO (09:46)
[2023-04-09] MEDS: MULTIVITAMINS /C LUTEIN (CENTRUM SILVER) TABLET *BKC 1 TAB PO (09:46)
[2023-04-09] MEDS: ACETAMINOPHEN 325 MG TABLET 650 MG PO (09:50)
[2023-04-09] MEDS: FELODIPINE 5 MG TAB CR 10 MG PO (09:50)
[2023-04-09 12:00] VITALS: PULSE 75
--- NOTE | 2023-04-09 13:35 | WPDUROPN2 ---
Progress Note: A&P Assessment and Plan (1) Gross hematuria: Code(s): R31.0 - Gross hematuria Status: Acute Assessment and Plan: Urine is clear at this time off of CBI. Okay to discharge home with Mora catheter. Would empirically discharged with Cipro 500 p.o. b.i.d. x7 days. Proceed with cysto bladder biopsy in the operating room next week. Subjective Subjective Date/Time Seen: 04/09/23 13:35 Principal diagnosis: Hematuria Interval history: Viktor is doing much better today. His urine is clear off CBI. Will discharge home with oral antibiotics and Mora catheter. He is schedule for cysto with bladder biopsy next week in the OR. Review of Systems Review of Systems: All systems reviewed & are unremarkable except as noted in HPI and below Exam Const: General: cooperative, comfortable and no acute distress Resp: Effort & Inspection: normal respiratory effort Cardio: Rate: regular rate Rhythm: regular rhythm Urinary Catheter: Urinary Catheter: patent and draining and urine clear Objective Data Vital Signs Vital Signs: Vital Signs - 24 hr 04/08/23 14:00 04/08/23 16:00 04/08/23 22:00 Temperature 37.3 C 36.6 C Pulse Rate 80 68 69 Respiratory Rate 18 18 Blood Pressure 140/76 139/73 Pulse Oximetry 99 97 Oxygen Delivery 04/08/23 20:00 04/09/23 00:00 04/08/23 20:00 Temperature Pulse Rate 63 65 Respiratory Rate Blood Pressure Pulse Oximetry Oxygen Delivery Room Air 04/09/23 04:00 04/09/23 06:00 04/09/23 08:00 Temperature 36.3 C L Pulse Rate 64 74 73 Respiratory Rate 20 Blood Pressure 169/80 H Pulse Oximetry 98 Oxygen Delivery 04/09/23 12:00 Temperature Pulse Rate 75 Respiratory Rate Blood Pressure Pulse Oximetry Oxygen Delivery Intake/Output Intake/Output: Intake & Output 04/06/23 04/07/23 04/08/23 04/09/23 23:59 23:59 23:59 23:59 Intake Total 1000 5640 1480 240 Output Total 9930 5570 356 1100 -1999 105 -208 -860 Meds/Results Medications: Active Medications Generic Name Dose Route Start Last Admin Trade Name Freq PRN Reason Stop Dose Admin Acetaminophen 650 mg 04/07/23 23:20 04/09/23 09:50 Acetaminophen 325 Mg Tablet PO 650 mg Q6H PRN Administration Mild Pain (1-3) or Fever Felodipine 10 mg 04/07/23 09:00 04/09/23 09:50 Felodipine 5 Mg Tab Cr PO 10 mg QAM DARREL Administration Ceftriaxone Sodium 1 gm in 50 mls @ 100 mls/hr 04/08/23 04:00 04/09/23 05:35 Rocephin 1 Gm/Ns 50 Ml IVPB 100 mls/hr Q24H DARREL Administration Lisinopril 10 mg 04/07/23 09:00 04/09/23 09:46 Lisinopril 10 Mg Tablet PO 10 mg QAM DARREL Administration Multivitamins/Minerals 1 tab 04/07/23 09:00 04/09/23 09:46 Multivitamins /C Lutein (Centrum Silver) Tablet *Bkc PO 1 tab QAM DARREL Administration Oxybutynin Chloride 5 mg 04/07/23 23:20 04/09/23 12:43 Oxybutynin Chloride 5 Mg Tablet PO 5 mg TID DARREL Administration Rosuvastatin Calcium 40 mg 04/07/23 09:00 04/09/23 09:46 Rosuvastatin 10 Mg Tablet PO 40 mg QAM [facility] Administration Senna/Docusate Sodium 1 tab 04/08/23 11:58 04/08/23 17:35 Senna/Docusate Sodium Tablet PO 1 tab DAILY PRN Administration Constipation Vitamin D 1,000 units 04/07/23 09:00 04/09/23 09:46 Cholecalciferol 1,000 Units Tablet PO 1,000 units DAILY DARREL Administration Labs Labs: Laboratory Results - last 24 hr 04/07/23 04/08/23 04/09/23 02:44 17:23 08:16 WBC 8.9 8.9 RBC 3.61 L 3.69 L Hgb 10.9 L 11.3 L Hct 34.4 L 35.1 L MCV 95.3 95.1 MCH 30.2 30.6 MCHC 31.7 L 32.2 RDW 12.5 12.5 Plt Count 390 H 422 H MPV 9.2 9.0 Immature Gran % (Auto) 0.3 Neut % (Auto) 70.7 Lymph % (Auto) 15.9 L [place] % (Auto) 10.5 H Eos % (Auto) 1.9 Baso % (Auto) 0.7 Lymph # (Auto) 1.41 [place] # (Auto) 0.9 H Eos # (Auto) 0.2 Baso # (Auto) 0.1 Abs Immat Gran (auto)
--- NOTE | 2023-04-09 13:44 | PM.DS ---
DS: Admitting Diagnosis Discharge Date 04/09/23 Admitting Diagnosis Gross hematuria DS: Discharge Diagnosis Discharge Diagnosis (1) Gross hematuria: Code(s): R31.0 - Gross hematuria Status: Acute (2) UTI (urinary tract infection): Qualifiers: Hematuria presence: with hematuria Urinary tract infection type: acute cystitis Qualified Code(s): N30.01 - Acute cystitis with hematuria Code(s): N39.0 - Urinary tract infection, site not specified Status: Acute (3) Adenocarcinoma of prostate: Code(s): C61 - Malignant neoplasm of prostate Status: Acute (4) Uncontrolled hypertension: Code(s): I10 - Essential (primary) hypertension Status: Acute (5) Dehydration: Code(s): E86.0 - Dehydration Status: Acute DS: Summary Hospital Course Hospital Course: This is a 62-year-old female with past medical history of hypertension, hyperlipidemia, prostatectomy in 2020 secondary to adenocarcinoma in the prostate post radiation therapy. He presented to the ED on 04/07/2023 due to suprapubic abdominal pain and hematuria. He had recently started radiation therapy after having prostatectomy. He had been having bleeding from urethra and dysuria. He was found to have leukocytosis of 14,600, hemoglobin 12.1, elevated BUN creatinine.? Urinalysis showed cloudy urine. he was started on ceftriaxone for possible UTI. Urine culture came back within normal limits but he did receive 3 days IV Rocephin to cover for simple cystitis. Urology was consulted and patient was placed on CBI. Bladder was irrigated. CBI was discontinued and urine remained clear. Urology recommending discharge home with Mora into put patient on empiric antibiotics of ciprofloxacin and follow-up in their office for cystoscopy in 1 week. Labs and vital signs are stable and he has been with her for discharge at this time. Time Spent with Patient Time attestation: Total time spent providing and/or coordinating discharge services: Exam Narrative: GENERAL: Comfortable, no acute distress HENMT: moist mucous membranes EYES: EOM intact b/l NECK: no lymphadenopathy RESPIRATORY: clear to auscultation CARDIO: RRR GI: soft, nontender, bowel sounds present : urinary catheter in place draining clear yellow urine SKIN: no rashes EXTREMITIES: no edema, redness or tenderness DS: Data Data Completed and Pending Labs on day of discharge: Labs from last 24 hours 04/09/23 04/08/23 04/07/23 08:16 17:23 02:44 WBC 8.9 8.9 RBC 3.69 L 3.61 L Hgb 11.3 L 10.9 L Hct 35.1 L 34.4 L MCV 95.1 95.3 MCH 30.6 30.2 MCHC 32.2 31.7 L RDW 12.5 12.5 Plt Count 422 H 390 H MPV 9.0 9.2 Immature Gran % (Auto) 0.3 Neut % (Auto) 70.7 Lymph % (Auto) 15.9 L [place] % (Auto) 10.5 H Eos % (Auto) 1.9 Baso % (Auto) 0.7 Lymph # (Auto) 1.41 [place] # (Auto) 0.9 H Eos # (Auto) 0.2 Baso # (Auto) 0.1 Abs Immat Gran (auto) 0.03 Absolute Neuts (auto) 6.3 Absolute Nucleated RBC 0.0 Nucleated RBC % 0.0 Sodium 138 137 Potassium 3.6 3.5 Chloride 102 103 Carbon Dioxide 28 24 Anion Gap 8 10 BUN 10 10 Creatinine 0.60 L 0.60 L Estim Creat Clear Calc 120 120 Estimated GFR > 60 > 60 Glucose 184 H 192 H Calcium 8.7 8.6 Crossmatch See Detail Preliminary micro results at discharge 04/07/23 03:58 Blood Culture - Preliminary Blood 04/07/23 03:58 Blood Culture - Preliminary Blood Discharge Plan Discharge Attending physician on discharge: Yakov Moran Consulting providers: Ed Mccracken Discharging Clinician: Bess Hodge Patient Disposition: Home, Self-Care Activity: as tolerated Diet: regular Discharge Instructions: Discharge disposition: Follow-up with urology in about 1 week for regularly scheduled appointment. Discharge home with Mora catheter. Clean as directed per nursing
== END 2023-04-09 14:40 | disposition home or self-care (01) ==
LOC: ANHED 04-07 02:11 → ANH3MED 04-09 13:53
PROVIDERS: Emergency Medicine; Hospitalist; Internal Medicine Critical Care Medicine; Admitting Provider Internal Medicine; Emergency Provider Physician Assistant; PCP Internal Medicine; Visit Provider Internal Medicine
DX: N30.01 Acute cystitis with hematuria (principal); C61 Malignant neoplasm of prostate; I10 Essential (primary) hypertension; E86.0 Dehydration; D72.829 Elevated white blood cell count, unspecified; D62 Acute posthemorrhagic anemia; E78.5 Hyperlipidemia, unspecified; R94.31 Abnormal electrocardiogram [ECG] [EKG]; R79.89 Other specified abnormal findings of blood chemistry; Z96.0 Presence of urogenital implants; Z92.3 Personal history of irradiation; Z87.891 Personal history of nicotine dependence; Z85.46 Personal history of malignant neoplasm of prostate; Z90.79 Acquired absence of other genital organ(s); Z79.899 Other long term (current) drug therapy
CPT/HCPCS: 36415; 80048; 80053; 81001; 83605; 84484; 85014; 85018; 85025; 85027; 85610; 85730; 86850; 86900; 86901; 86923; 87040; 87086; 93005; 96361; 96365; 96374; 99285; A9270; G0378; J0696; J2270; J7030

== ENCOUNTER 2023-04-16 00:12 | Day surgery (SDC) | payer OTHER, SELFPAY ==
[2023-04-12 09:43] VITALS: BMI 29.9
--- NOTE | 2023-04-12 09:50 | PC.NURSE ---
Report to the Outpatient Waiting Room, entrance under the green pavilion located off [facility], at time 0700 on date 04/16/23. Planned Procedure Time: 0900. Time changes happen often and if your time is changed the preop area will call you the afternoon before. - You and your visitor will be asked to self-screen and do not enter if you have any COVID symptoms. - A mask is optional within the hospital at this time. Patients may have clear liquids (water, carbonated beverages, clear teas, apple juice) until 3 hours prior to surgery with a maximum of 20 ounces. - No food from midnight until time of surgery Take the following medications with a SIP of water the morning of surgery: CIPROFLOXACIN, FELODIPINE, TYLENOL IF NEEDED DO NOT STOP ANY OF YOUR OTHER PRESCRIPTION MEDICATIONS PRIOR TO SURGERY ?EXCEPT THE FOLLOWING Medications to discontinue per physician: VITAMINS/SUPPLEMENTS Date to take last dose: 04/12/23 Please no make-up, nail wolof, hairspray, perfume, deodorant, or body powder the day of surgery. No jewelry (including any body piercings) or valuables the day of surgery, leave them at home. Please take a shower or bath the night before, or the morning of, surgery with an antibacterial soap. Wear comfortable, loose fitting clothing. - Jewelry must be removed prior to entering the operating room. Rings and piercings that are not removed may be cut off. - The hospital will not accept responsibility for valuables. - Please leave all valuables, including medications, at home the day of surgery. If you are going home after surgery, a licensed auto driver must drive you home. - NO public transportation without another adult if you receive anesthesia. - We recommend that an adult stay with you for 24 hours following discharge. - We also recommend that you do not drive, make important decision, drink alcoholic beverages, or take any drugs that were not prescribed by your health care provider for at least 24 hours after your discharge time. Follow any additional instructions given to you from your surgeon. If you or anyone in your household have experienced Covid symptoms in the past week, please notify your surgeon or the nurse liaison at the phone number below for possible testing. Telephone instructions given to PT - KM CADET and asked if any additional questions and then verbalized understanding. Patient advised to call surgeon office or pre surgery nurse liaison [phone] if any additional questions.
[2023-04-16] VITALS (14 sets, daily range): BP systolic 120–155; BP diastolic 73–99; PULSE 63–83; RESP 11–20; TEMP 36.4–36.8; O2SAT 93–100; BMI 30.8
--- NOTE | 2023-04-16 07:36 | WPDHPUPDATE1 ---
History and Physical Update Update Date/Time: 04/16/23 07:36 History and Physical has been reviewed, including an updated exam of the patient. There are NO changes in the patient's condition. Risks, benefits, and alternatives have been discussed and questions answered. Patient agrees to proceed with procedure.
--- NOTE | 2023-04-16 07:37 | WPDHPUPDATE1 ---
History and Physical Update Update Date/Time: 04/16/23 07:37 History and Physical has been reviewed, including an updated exam of the patient. There are NO changes in the patient's condition. Risks, benefits, and alternatives have been discussed and questions answered. Patient agrees to proceed with procedure. Proceed with cysto, bladder biopsy with fulguration
[2023-04-16] MEDS: LACTATED RINGERS 1,000 ML 30 ML IV CONT ×2 (07:50→10:22)
--- NOTE | 2023-04-16 08:05 | P.PNAN_ITS ---
Anes - Initial Pre Proc Eval Procedure: Operation Date: 04/16/23 09:15 Proposed Procedures p Cystoscopy, Bladder Biopsy - Jem Spivey MD Date/Time: 04/16/23 08:05 Surgeon: Jem Spivey MD Pre Op Diagnosis: Rentention of Urine, Prostate Ca Patient Data Age: 62 Gender: M Height: 1.74 m Weight: 90.75 kg Allergies Allergy/AdvReac Type Severity Reaction Status Date / Time No Known Allergies Allergy Mild Verified 04/12/23 09:43 Home Medications Medication Instructions Recorded Confirmed Type cholecalciferol (vitamin D3) 25 25 mcg PO DAILY 08/05/20 04/12/23 History mcg (1,000 unit) tablet felodipine 10 mg tablet,extended 10 mg PO QAM 08/05/20 04/12/23 History release 24 hr geriatric multivitamin-min 1 tablet PO DAILY 08/05/20 04/12/23 History lisinopril 10 mg tablet 10 mg PO QAM 08/05/20 04/12/23 History rosuvastatin 40 mg tablet 40 mg PO QAM 08/05/20 04/12/23 History ciprofloxacin HCl 500 mg tablet 500 mg PO Q12H #14 tabs 04/09/23 04/12/23 Rx acetaminophen 325 mg tablet 650 mg PO BID 04/12/23 04/12/23 History (Tylenol) Patient hx anesthesia problems: none Family hx anesthesia problems: none Results Review: All pre-operative results and documents have been reviewed as part of the pre- operative evaluation. [facility] Past Medical History Medical History HTN (hypertension) Hyperlipidemia Prostate cancer Surgical History Surgical History History of prostate surgery Family History Family History Father Pancreas cancer Mother Dementia Social History Social History Smoking packs per day: 0.75 Smoking cigarettes per day: 15.0 Years smoked: 10 Smoking pack-years: 7.50 Smoking status: Former smoker Tobacco type: cigarettes Smoking end date: 05/13/88 Alcohol intake: current Drinks per week: 10 Alcohol use details: NOT IN LAST FEW MONTHS Substance use: never Substance use type: does not use Lack of Transportation: No Lack of Food: Never True Current Housing: I Have Housing Concerned About Future Housing: No Difficulty Paying Gas/Electric Bills: No Difficulty Paying for Meds: No Currently Unemployed: No Education: High School Diploma/GED Difficulty w/ Childcare or Family Care: No Living arrangements: alone Spiritual care concerns: No Anes - Eval Final PreProcedure Day of Procedure 04/16/23 08:05 Patient weight: overweight Heart: regular rate and rhythm Lungs: clear to auscultation Airway: Mallampati scale class 1 Neurological: alert and oriented Last oral intake: >/= 8 hours ASA classification: III Emergent: no Anesthetic plan: proceed Anesthesia type and monitoring: general LMA and standard monitoring Results Review: All pre-operative results and documents have been reviewed as part of the pre- operative evaluation. Informed Consent: The patient's anesthetic plan and its attendant risks and benefits were discussed with the patient/family/POA. Questions were solicited and answers provided to the satisfaction of the patient/family/POA.
[2023-04-16] MEDS: ceFAZolin 2 GM/D5W 50 ML 2 GM/50 ML BAG IVPB (09:09)
[2023-04-16] MEDS: LIDOCAINE HCL 2% GEL UROJET 10 ML PKG MUCOUS MEM (09:20)
--- NOTE | 2023-04-16 09:50 | W.PM.PROC2 ---
Procedure Note - Detailed Date of Procedure 04/16/23 Pre-op Diagnosis , Prostate Ca, hematuria Post-op Diagnosis Same Procedure Performed Cystoscopy with bladder biopsy and fulguration Surgeon Jem Spivey MD Anesthesia General Description of Procedure Patient is taken to the operative suite correctly identified. Once anesthesia was obtained was placed in dorsal lithotomy position prepped draped usual sterile fashion. Twenty-two Niuean scope was inserted the bladder direct vision. The bladder neck is somewhat friable in nature. Upon entering the bladder he has what appears to be a smaller capacity bladder. There was quite a bit of erythema and edema scattered throughout the bladder. At this point is difficult to tell whether this is from catheter irritation versus underlying pathology. Cold cup biopsy was taken from several areas. I then used a Bugbee to fulgurate the biopsied area as well as the bladder neck. No discrete papillary tumors were noted. Scope was removed. 2% viscous lidocaine was inserted urethra an [address] was placed with 10 cc in the balloon. This was connected to continuous bladder irrigation and patient is taken recovery stable condition. If his urine clears in recovery room he will be discharged home with a Mora catheter for an additional 3 4 days. This completes dictation. Please send a copy of op note to my office Estimated Blood Loss 10 Drains Yes Packing No Pathology Yes Complications No immediate complications Condition Stable Disposition PACU
[2023-04-16] MEDS: fentaNYL CITRATE INJ (*CRX) 100 MCG/2 ML VIAL 25 MCG IV PUSH ×8 (10:10→10:47)
--- NOTE | 2023-04-16 10:34 | SUR.PHASEI ---
1030 - dr. olson at bedside, talking with patient. dr. olson assessing urine color. ordered to resume CBI and infuse for one hour.
[2023-04-16] MEDS: oxyCODONE HCL (*CRX) 5 MG TAB IR PO (10:49)
--- NOTE | 2023-04-16 11:40 | SUR.PHASEI ---
Patient meets PACU discharge criteria, unit bed unavailable at this time. Patient placed in extended recovery status.
--- NOTE | 2023-04-16 11:43 | SUR.PHASEI ---
RN called Dr. Spivey and he is going to keep patient overnight with CBI running.
--- NOTE | 2023-04-16 13:23 | SUR.PHASEI ---
Patient ate 100% of lunch tray.
--- NOTE | 2023-04-16 13:57 | SUR.PHASEI ---
Patient up sitting in recliner. Dr. Spivey at bedside to assess CBI. Notified him that CBI has been stopped for aproximately 30 minutes. Stated if urine remains clear after patient has been sitting up and had some activity he may be able to be discharged home.
== END 2023-04-16 14:36 | disposition home or self-care (01) ==
PROVIDERS: PCP Internal Medicine; Visit Provider Urology
PROC: 0TBB8ZX Excision of Bladder, Via Natural or Artificial Opening Endoscopic, Diagnostic (ICD-10-PCS; CPT 52204; principal; 2023-04-16 09:15)
DX: N30.20 Other chronic cystitis without hematuria (principal); C61 Malignant neoplasm of prostate; R33.9 Retention of urine, unspecified; I10 Essential (primary) hypertension; E78.00 Pure hypercholesterolemia, unspecified
CPT/HCPCS: 52204; 88305; A9270; J0690; J1100; J2250; J2405; J2704; J3010; J7120

== ENCOUNTER 2023-08-08 13:07 | Outpatient (CLI) | payer OTHER, SELFPAY ==
--- NOTE | ~2023-08-08 | PE_ITS ---
EXAMINATION: PET_PETPSMAST_PT DATE: 08/08/2023 15:54 INDICATION: Prostate cancer. TECHNIQUE: 5.155 mCi Ga 68 gozetotide was administered intravenously. Low dose computed tomography (C T) images were acquired from the base of the brain to the proximal thighs for attenuation correction and anatomic localization. Automated exposure control was employed. Dose-length product (DLP) was 122 9 mGy-cm. Positron emission tomography (PET) images were acquired in the same distribution. COMPARISON: CT abdomen and pelvis 06/30/2020, bone scan 06/30/2020 FINDINGS: Head/neck: There is mucosal thickening in the paranasal sinuses. There are no pathologically enlarged lymph nodes. Chest: The lungs demonstrate minimal atelectasis. No pleural effusion. The heart size is normal. Ther e are coronary artery calcifications. No pericardial effusion. There is bilateral gynecomastia. Abdomen/pelvis/proximal thighs: There is cysts in the liver measuring up to 17 mm. The gallbladder, s pleen, pancreas, and adrenal glands are normal. There is an 8 mm cyst in right kidney. There is mild bilateral hydronephrosis and hydroureter. There is diffuse bladder wall thickening. There are stones in the bladder measuring up to 15 mm. There is diverticulosis of the colon without evidence of divert iculitis. The appendix is normal. There are no dilated loops of bowel. There are no pathologically en larged lymph nodes. There is no free intraperitoneal fluid. There is calcified atherosclerosis of the aorta and many of the other arteries. There is no osseous malignancy. IMPRESSION: 1. No evidence of metastatic disease. 2. Mild bilateral hydronephrosis and hydroureter. 3. Chronic diffuse bladder wall thickening, likely benign. 4. Bladder stones. Reviewed, dictated and finalized at location A.
== END 2023-08-08 13:08 | disposition home or self-care (01) ==
LOC: ANHIMG 13:08
PROVIDERS: PCP Internal Medicine; Visit Provider Urology
DX: C61 Malignant neoplasm of prostate (principal); N13.30 Unspecified hydronephrosis; N13.4 Hydroureter; R93.41 Abnormal radiologic findings on diagnostic imaging of renal pelvis, ureter, or bladder; N21.0 Calculus in bladder
CPT/HCPCS: 78815; A9596

== ENCOUNTER 2023-08-16 11:15 | Outpatient (CLI) | payer OTHER, SELFPAY | END 2023-08-16 11:16 | disposition home or self-care (01) | PROVIDERS: PCP Internal Medicine; Visit Provider Urology | DX: Z01.818 Encounter for other preprocedural examination (principal); N21.0 Calculus in bladder | CPT/HCPCS: 87086 ==

== ENCOUNTER 2023-08-20 00:56 | Day surgery (SDC) | payer OTHER, SELFPAY ==
[2023-08-16 10:47] VITALS: BMI 29.9
--- NOTE | 2023-08-16 10:51 | PC.NURSE ---
Report to the Outpatient Waiting Room, entrance under the green pavilion located off [facility], at time 9:00 on date 08/20/23. Planned Procedure Time: 11:00. Time changes happen often and if your time is changed the preop area will call you the afternoon before. - You and your visitor will be asked to self-screen and do not enter if you have any COVID symptoms. - A mask is optional within the hospital at this time. Patients may have clear liquids (water, carbonated beverages, clear teas, apple juice) until 3 hours prior to surgery with a maximum of 20 ounces. - No food from midnight until time of surgery Take the following medications with a SIP of water the morning of surgery: FELODIPINE, TYLENOL IF NEEDED DO NOT STOP ANY OF YOUR OTHER PRESCRIPTION MEDICATIONS PRIOR TO SURGERY ?EXCEPT THE FOLLOWING Medications to discontinue per physician: VITAMINS/SUPPLEMENTS, IBUPROFEN Date to take last dose: NO MORE UNTIL AFTER SURGERY Please no make-up, nail chilean, hairspray, perfume, deodorant, or body powder the day of surgery. No jewelry (including any body piercings) or valuables the day of surgery, leave them at home. Please take a shower or bath the night before, or the morning of, surgery with an antibacterial soap. Wear comfortable, loose fitting clothing. - Jewelry must be removed prior to entering the operating room. Rings and piercings that are not removed may be cut off. - The hospital will not accept responsibility for valuables. - Please leave all valuables, including medications, at home the day of surgery. If you are going home after surgery, a licensed delivery route driver must drive you home. - NO public transportation without another adult if you receive anesthesia. - We recommend that an adult stay with you for 24 hours following discharge. - We also recommend that you do not drive, make important decision, drink alcoholic beverages, or take any drugs that were not prescribed by your health care provider for at least 24 hours after your discharge time. Follow any additional instructions given to you from your surgeon. If you or anyone in your household have experienced Covid symptoms in the past week, please notify your surgeon or the nurse liaison at the phone number below for possible testing. Telephone instructions given to PT - KM and asked if any additional questions and then verbalized understanding. Patient advised to call surgeon office or pre surgery nurse liaison [phone] if any additional questions.
[2023-08-20] VITALS (11 sets, daily range): BP systolic 118–171; BP diastolic 64–96; PULSE 64–75; RESP 12–18; TEMP 36.3–36.6; O2SAT 96–100; BMI 30.4
--- NOTE | ~2023-08-20 | XR_ITS ---
EXAMINATION: XR fluoroscopy no charge DATE: 08/20/2023 08:12 INDICATION: Bladder stone. TECHNIQUE: 2 intraoperative fluoroscopic views of the abdomen and pelvis were obtained. I was not pre sent. Fluoroscopy exposure time was 3 seconds. COMPARISON: Head CT 08/08/2023 FINDINGS: There are no dilated loops of bowel. There is no visible bladder stone. IMPRESSION: 1. No visible bladder stone. Reviewed, dictated and finalized at location A.
--- NOTE | 2023-08-20 07:06 | WPDANESEPPF ---
Anes - Initial Pre Proc Eval Procedure: Operation Date: 08/20/23 07:30 Proposed Procedures p Cystoscopy, Bilateral Retrograde Pyelogram, Holmium Laser of Bladder Stones - Jem Spivey MD Date/Time: 08/20/23 07:06 Surgeon: Jem Spivey MD Pre Op Diagnosis: bladder stones, hydronephrosis Patient Data Age: 62 Gender: M Height: 1.74 m Weight: 90.75 kg Allergies Allergy/AdvReac Type Severity Reaction Status Date / Time No Known Allergies Allergy Mild Verified 08/16/23 10:45 Home Medications Medication Instructions Recorded Confirmed Type felodipine 10 mg tablet,extended 10 mg PO QAM 08/05/20 08/16/23 History release 24 hr geriatric multivitamin-min 1 tablet PO DAILY 08/05/20 08/16/23 History lisinopril 10 mg tablet 10 mg PO QAM 08/05/20 08/16/23 History rosuvastatin 40 mg tablet 40 mg PO QAM 08/05/20 08/16/23 History acetaminophen 325 mg tablet 650 mg PO BID 04/12/23 08/16/23 History (Tylenol) ibuprofen 200 mg tablet 800 mg PO BID PRN Pain 08/16/23 08/16/23 History omega 6-sky-npo-fish oil 1,000 mg 1 cap PO DAILY 08/16/23 08/16/23 History (120 mg-180 mg) capsule (Fish Oil) Patient hx anesthesia problems: none Family hx anesthesia problems: none Results Review: All pre-operative results and documents have been reviewed as part of the pre-operative evaluation. [facility] Past Medical History Medical History HTN (hypertension) Hyperlipidemia Prostate cancer Surgical History Surgical History History of prostate surgery Family History Family History Father Pancreas cancer Mother Dementia Social History Social History Smoking packs per day: 0.75 Smoking cigarettes per day: 15.0 Years smoked: 10 Smoking pack-years: 7.50 Smoking status: Former smoker Tobacco type: cigarettes Smoking end date: 05/13/89 Alcohol intake: current Drinks per week: 6 Alcohol use details: NOT IN LAST FEW MONTHS Substance use: never Substance use type: does not use Lack of Transportation: No Lack of Food: Never True Current Housing: I Have Housing Concerned About Future Housing: No Difficulty Paying Gas/Electric Bills: No Difficulty Paying for Meds: No Currently Unemployed: No Education: High School Diploma/GED Difficulty w/ Childcare or Family Care: No Living arrangements: alone Spiritual care concerns: No Anes - Eval Final PreProcedure Day of Procedure 08/20/23 07:06 Patient weight: obese Heart: regular rate and rhythm Lungs: clear to auscultation Airway: Mallampati scale class II Neurological: alert and oriented Last oral intake: >/= 8 hours ASA classification: III Emergent: no Anesthetic plan: proceed Anesthesia type and monitoring: general LMA and standard monitoring Results Review: All pre-operative results and documents have been reviewed as part of the pre-operative evaluation. Informed Consent: The patient's anesthetic plan and its attendant risks and benefits were discussed with the patient/family/POA. Questions were solicited and answers provided to the satisfaction of the patient/family/POA.
--- NOTE | 2023-08-20 07:14 | WPDHPUPDATE1 ---
History and Physical Update Update Date/Time: 08/20/23 07:14 History and Physical has been reviewed, including an updated exam of the patient. There are NO changes in the patient's condition. Risks, benefits, and alternatives have been discussed and questions answered. Patient agrees to proceed with procedure. Proceed with cystoscopy with laser of bladder stones and bilateral retrogrades.
[2023-08-20] MEDS: ceFAZolin 2 GM/D5W 50 ML 2 GM/50 ML BAG IVPB (07:34)
[2023-08-20] MEDS: LIDOCAINE HCL 2% GEL UROJET 10 ML PKG MUCOUS MEM (07:37)
--- NOTE | 2023-08-20 08:14 | W.PM.PROC2 ---
Procedure Note - Detailed Date of Procedure 08/20/23 Pre-op Diagnosis bladder stones, hydronephrosis Post-op Diagnosis Other (Necrotic tissue at bladder neck. Erythema posterior wall, inability to catheterize ureteral orifices) Procedure Performed Urethral dilatation to 26 Russian, resection of necrotic tissue at bladder neck, bladder biopsy with fulguration, complex Mora catheter placement Surgeon Jem Spivey MD Anesthesia General Indications 62-year-old male with Guera 9 adenocarcinoma of his prostate which was resected in 2020. He also underwent adjuvant radiation therapy. He has had episodes of intermittent hematuria requiring intermittent catheterizations. He now presents after a PET scan which revealed no evidence of metastatic disease but did reveal questionable 15 mm bladder stone. Findings Necrotic tissue at bladder neck 5 to 7 o'clock position, prominent trigone, inability to catheterize ureteral orifices, erythema and vascularity posterior wall. Description of Procedure Patient is taken to the operative suite correctly identified. Once anesthesia was obtained was placed in dorsal lithotomy position and prepped draped usual sterile fashion. Nineteen Russian scope was inserted into the urethra. Was noted that he was narrow at the bulbar urethra just distal to the sphincter. We were able to manipulate the scope past this area and was also tight right at the bladder neck. It was noted that there was a lot of necrotic appearing tissue right at the bladder neck area. This is what I presume the CT scan was picking up. The bladder itself had some mild erythema along the posterior wall but no tumors. His tie go on area was somewhat distorted and prominent. No was eventually able to visualize both ureteral orifices but due to its prominence I was unable to torque the scope well enough to cannulate the was for retrogrades. At this point the urethra bladder neck was dilated using male sounds up to 26 Russian. Twenty-four Russian resectoscope sheath was inserted. The necrotic tissue was scraped off and resected. I did send this for analysis. I fulgurated the area. I then took a biopsy of the posterior wall erythematous area and fulgurated it he also. At this point I terminated procedure. 2% viscous lidocaine was inserted into the urethra an 18 Russian Mora was placed with 10 cc in the balloon. This was connected to CBI. The was see how he does in recovery room. For remains fairly clear to be discharged home with a Mora catheter and have it removed on Saturday. Will obtain a BMP in recovery room. Most likely will need a renal scan to see how well his kidneys are draining. This completes dictation. Please send a copy of op note to my office. Estimated Blood Loss 20 Drains Yes Packing No Pathology Yes Complications No immediate complications Condition Stable Disposition PACU
[2023-08-20] MEDS: LACTATED RINGERS 1,000 ML 30 ML IV CONT (08:17)
[2023-08-20] MEDS: oxyBUTYnin CHLORIDE 5 MG TABLET PO (09:40)
[2023-08-20 09:45] LABS: Anion Gap 10 mmol/L (4-12); Blood Urea Nitrogen 15 mg/dL (9-20); Calcium 9.6 mg/dL (8.4-10.2); Carbon Dioxide 25 mmol/L (22-30); Chloride 106 mmol/L (98-107); Estimated CRCL calculation 103 ml/min; Estimated Glomerular Filt Rate > 60; Glucose 149 mg/dL (65-110); Potassium 4.3 mmol/L (3.4-5.0); Sodium 141 mmol/L (137-145)
[2023-08-20] MEDS: oxyCODONE HCL (*CRX) 5 MG TAB IR PO (09:56)
== END 2023-08-20 10:25 | disposition home or self-care (01) ==
PROVIDERS: PCP Internal Medicine; Visit Provider Urology
PROC: (CPT 52352; principal; 2023-08-20 07:30)
DX: N30.20 Other chronic cystitis without hematuria (principal); N32.89 Other specified disorders of bladder; N21.0 Calculus in bladder; Z85.46 Personal history of malignant neoplasm of prostate; I10 Essential (primary) hypertension; E78.5 Hyperlipidemia, unspecified; Z87.891 Personal history of nicotine dependence; E66.9 Obesity, unspecified; Z68.30 Body mass index [BMI] 30.0-30.9, adult
CPT/HCPCS: 52204; 52500; 36415; 80048; 87086; 88305; 99199; A9270; C1769; J0690; J1100; J2250; J2405; J2704; J3010; J7120

== ENCOUNTER 2024-05-04 13:07 | Outpatient (CLI) | payer OTHER, SELFPAY ==
--- NOTE | ~2024-05-04 | PE_ITS ---
EXAMINATION: PET_PETPSMAST_PT DATE: 05/04/2024 16:28 INDICATION: Prostate cancer TECHNIQUE: 5.576 mCi of Illucix Ga-68([id number]) was administered i.v. Low dose computed lisha graphy (CT) images were acquired from the base of the brain to the base of the brain to the proximal thighs for attenuation correction and anatomic localization. Positron emission tomography (PET) image s were acquired in the same distribution beginning 94 minutes after injection. Images including fused PET/CT images were reconstructed in axial, coronal, and sagittal planes. Automated exposure control technique was employed. The dose-length product was 1773.99 mGy-cm. COMPARISON: 08/08/2023 FINDINGS: Head/neck: Typical pattern of symmetric physiologic increased activity in the lacrimal, parotid and submandibula r glands as well as along the mucosa of the nasal and oral cavities, pharynx and hypopharynx. No path ologically enlarged cervical lymphadenopathy or suspicious foci of increased uptake in the visualized head or neck. Chest: Lungs are clear with no suspicious pulmonary nodules, pneumonia, pulmonary edema or pleural effusion. Heart size is normal. Atherosclerotic coronary artery calcification. No pericardial effusion. Thorac ic aorta is normal in caliber. No pathologically enlarged or PSMA avid thoracic lymphadenopathy. Abdomen/pelvis/proximal thighs: Physiologic renal accumulation and excretion of activity in the kidneys, bladder and along portions o f ureters. Change of prior prostatectomy. Unchanged chronic diffuse bladder wall thickening likely be nign either sequela of chronic outlet obstruction or chronic cystitis. Normal degree and slightly het erogenous pattern of increased uptake throughout the liver and spleen without radiologic correlate or dominant PSMA avid lesion. There are few scattered low-attenuation hepatic cysts measuring up to 1.7 cm. The gallbladder, pancreas and bilateral adrenal glands are normal. Moderate uptake scattered thr oughout the bowels with typical duodenal and proximal jejunal predominance and without radiologic cor relate, also likely physiologic. There are few scattered clonic diverticula without adjacent comparis on to suggest diverticular colitis. Normal appendix. Interval enlargement of a previously 5 mm curren tly 7 mm now PSMA avid left common iliac chain lymph node with maximal SUV of 6.0 consistent with met astatic disease. No other abnormal foci of increased uptake or pathologically enlarged lymphadenopath y in the abdomen, pelvis or proximal thighs. Musculoskeletal: No suspicious lytic, blastic or PSV may avid bone lesions. IMPRESSION: 1. Interval increase in size and new increased PSA may uptake associated with a 7 mm left common judy c chain lymph node consistent with metastatic disease. Reviewed, dictated and finalized at location B. INSTALLATION TECHNICIAN IMPRESSION: 1. Interval increase in size and new increased PSA may uptake associated with a 7 mm left common iliac chain lymph node consistent with metastatic disease.
== END 2024-05-04 13:08 | disposition home or self-care (01) ==
PROVIDERS: PCP Internal Medicine; Visit Provider Urology
DX: C61 Malignant neoplasm of prostate (principal)
CPT/HCPCS: 78815; A9596